=== PATIENT | male | born 1935 | race Caucasian/White ===

== ENCOUNTER 2018-06-24 15:27 | Inpatient (IN) ==
[2018-06-24 17:35] LABS: Baso # (Auto) 0.1 th/mm3 (0.0-0.2); Eos # (Auto) 0.2 th/mm3 (0.0-0.4); Eos % (Auto) 3.4 % (0.0-4.0); Hematocrit 25.7 % (39.0-51.0); Hemoglobin 8.5 gm/dL (13.0-17.0); Lymph # (Auto) 0.9 th/mm3 (1.0-4.8); Lymph % (Auto) 16.8 % (9.0-44.0); Mean Corpuscular HGB Conc 33.1 % (32.0-36.0); Mean Corpuscular Hemoglobin 28.3 pg (27.0-34.0); Mean Corpuscular Volume 85.6 fL (80.0-100.0); Mean Platelet Volume 8.2 fL (7.0-11.0); Mono # (Auto) 0.8 th/mm3 (0.0-0.9); Neut # (Auto) 3.4 th/mm3 (1.8-7.7); Neut % (Auto) 63.8 % (16.0-70.0); Platelet Count 162 th/mm3 (150-450); Red Cell Distribution Width 15.7 % (11.6-17.2); White Blood Count 5.3 th/mm3 (4.0-11.0)
[2018-06-24] MEDS ORDERED: Pantoprazole Inj 80 MG in Sodium Chlor 0.9% Inj 35 ML IV.SIG ONE (17:41)
[2018-06-24 17:42] LABS: Activated Partial Thrombo Time 33.2 sec (24.3-30.1); INR 1.2 Ratio; Prothrombin Time 12.2 sec (9.8-11.6)
[2018-06-24 17:50] LABS: Albumin 3.3 g/dL (3.4-5.0); Anion Gap 9 meq/L (5-15); Aspartate Aminotransferase 19 U/L (15-37); Blood Urea Nitrogen 10 mg/dL (7-18); Calcium 8.2 mg/dL (8.5-10.1); Carbon Dioxide 25.9 meq/L (21.0-32.0); Chloride 102 meq/L (98-107); Glomerular Filtration Rate Greater Than 89 mL/min (>89); Glucose,Random 98 mg/dL (74-106); Potassium 3.6 meq/L (3.5-5.1); Sodium 137 meq/L (136-145)
[2018-06-24 17:54] LABS: Alanine Aminotransferase 18 U/L (12-78); Alkaline Phosphatase 99 U/L (45-117); Total Protein 6.8 g/dL (6.4-8.2)
[2018-06-24] MEDS ORDERED: Pantoprazole Inj 80 MG in Sodium Chlor 0.9% Inj 100 ML IV.CONT SCH (18:00)
--- NOTE | 2018-06-24 18:42 | ED ---
HPI General Chief complaint: GI Bleed Stated complaint: Phy Sent Time Seen by Provider: 06/24/18 16:20 Source: patient and family Mode of arrival: ambulatory Limitations: no limitations History of Present Illness HPI narrative: Patient is an 82-year-old male who comes in. He is on Eliquis for atrial fibrillation and says that he has had nosebleeds, which he believes has caused his hemoglobin to drop. He says he required a blood transfusion about 2 months ago. He went to the resident clinic today to try to establish care. He had a blood gas done that showed a hemoglobin of 6.9, so he was sent to the emergency department. He says he feels very tired. He has no other complaints. He denies any chest pain or shortness of breath. He denies any abdominal pain. He does say that he has had some black stools. Related Data Home Medications Medication Instructions Recorded Confirmed apixaban [Eliquis] 5 mg PO BID 06/03/18 06/03/18 carvedilol [Coreg] 3.125 mg PO BID 06/03/18 06/03/18 donepezil 10 mg PO DAILY 06/03/18 06/03/18 fenofibrate 06/03/18 furosemide [Lasix] 10 mg PO Q3D 06/03/18 06/03/18 iron aspgl,ps complex-vit C-sa 1 cap PO Q24H 06/03/18 06/03/18 [Ferrex 150 Plus] lisinopril 2.5 mg PO DAILY 06/03/18 06/03/18 magnesium 200 mg PO DAILY 06/03/18 06/03/18 metformin 500 mg PO TID 06/03/18 06/03/18 paroxetine HCl 40 mg PO DAILY 06/03/18 06/03/18 simvastatin 20 mg PO QPM 06/03/18 06/03/18 sitagliptin [Januvia] 100 mg PO DAILY 06/03/18 06/03/18 tamsulosin [Flomax] 0.4 mg PO DAILY 06/03/18 06/03/18 Allergies Allergy/AdvReac Type Severity Reaction Status Date / Time Iodinated Contrast- Oral and Allergy Altered Verified 06/03/18 06:51 IV Dye Sense of [Contrast] Taste Review of Systems ROS: all other systems reviewed are negative Constitutional Denies chills and Denies fever(s) ENT Denies dizziness Cardiovascular Denies chest pain Respiratory Denies dyspnea and Denies dyspnea on exertion Gastrointestinal Denies abdominal pain, Denies nausea and Denies vomiting Musculoskeletal Denies myalgias and Denies arthralgias Integumentary/Breasts Denies lesions and Denies rash Neurologic Denies focal weakness and Denies numbness [facility] Medical History Medical History History of CHF (congestive heart failure) (Acute) History of atrial fibrillation (Acute) History of chronic obstructive pulmonary disease (Acute) History of diabetes mellitus (Acute) Surgical History Surgical History History of heart bypass surgery (Acute) Social History Social History Substance History: No History of Abuse Second Hand Smoke Exposure: No Smoking Status: Former smoker How Often Do You Have a Drink Containing Alcohol: Monthly or less Immunization History Tetanus Immunization: Unsure Hx Influenza Vaccine This Season: Yes Exam Narrative Exam Narrative: GENERAL: Awake and alert, no acute distress. SKIN: Focused skin assessment warm/dry. No wounds or signs of infection. HEAD: Atraumatic. Normocephalic. EYES: Pupils equal and round. No scleral icterus. Pale conjunctiva. ENT: Mucous membranes pink and moist. NECK: Trachea midline. No JVD. CARDIOVASCULAR: Regular rate and rhythm. No murmur appreciated. RESPIRATORY: No accessory muscle use. Clear to auscultation. Breath sounds equal bilaterally. GASTROINTESTINAL: Abdomen soft, non-tender, nondistended. RECTAL: Exam performed in the presence of a nurse. Black stool, positive for occult blood. MUSCULOSKELETAL: No obvious deformities. No clubbing. No cyanosis. No edema. NEUROLOGICAL: Awake and alert. No obvious cranial nerve deficits. Motor grossly within normal limits. Normal speech. PSYCHIATRIC: Appropriate mood and affect; insight and judgment normal. Course Initial Documented Vital Signs Temperature 98.2 F 06/24/18 15:48 Pulse Rate 63 06/24/18 15:48 Respiratory Rate 14 06/24/18 15:48 Blood Pressure 122/58 L 06/24/18 15:48 Pulse Oximetry 97 06/24/18 15:48 Last Documented Vital Signs Temperature 98.7 F 06/24/18 16:17 Pulse Rate 67 06/24/18 16:17 Respiratory Rate 18 06/24/18 16:17 Blood Pressure 128/57 L 06/24/18 16:17 Pulse Oximetry 98 06/24/18 17:10 Medical Decision Making MDM Narrative Medical decision making narrative: Patient is an 82-year-old male who comes in due to low hemoglobin. He is found to have blood in his stool. IV sevens, labs sent. Labs show hemoglobin of 8.5. Patient given Protonix. He will be admitted for further management. Medical Screen Exam Complete: Yes Emergency Medical Condition: Yes Differential Diagnosis Differential Diagnosis: GI bleed versus anemia versus coagulopathy Lab Data Lab results reviewed: Yes I reviewed the patient's lab results. Result diagrams: 06/24/18 16:40 06/24/18 16:40 Lab Results 06/24/18 06/24/18 06/24/18 Range/Units 16:40 16:40 16:40 WBC 5.3 (4.0-11.0) th/mm3 RBC 3.00 L (4.50-5.90) mil/mm3 Hgb 8.5 L (13.0-17.0) gm/dL Hct 25.7 L (39.0-51.0) % MCV 85.6 (80.0-100.0) fL MCH 28.3 (27.0-34.0) pg MCHC 33.1 (32.0-36.0) % RDW 15.7 (11.6-17.2) % Plt Count 162 (150-450) th/mm3 MPV 8.2 (7.0-11.0) fL Neut % (Auto) 63.8 (16.0-70.0) % Lymph % (Auto) 16.8 (9.0-44.0) % [place] % (Auto) 15.0 H (0.0-8.0) % Eos % (Auto) 3.4 (0.0-4.0) % Baso % (Auto) 1.0 (0.0-2.0) % Neut # (Auto) 3.4 (1.8-7.7) th/mm3 Lymph # (Auto) 0.9 L (1.0-4.8) th/mm3 [place] # (Auto) 0.8 (0.0-0.9) th/mm3 Eos # (Auto) 0.2 (0.0-0.4) th/mm3 Baso # (Auto) 0.1 (0.0-0.2) th/mm3 WBC Differential . Differential Comment Auto diff final PT 12.2 H (9.8-11.6) sec INR 1.2 Ratio APTT 33.2 H (24.3-30.1) sec Sodium 137 (136-145) meq/L Potassium 3.6 (3.5-5.1) meq/L Chloride 102 (98-107) meq/L Carbon Dioxide 25.9 (21.0-32.0) meq/L Anion Gap 9 (5-15) meq/L BUN 10 (7-18) mg/dL Creatinine 0.82 (0.60-1.30) mg/dL Estimated GFR Greater than 89 (>89) mL/min Random Glucose 98 (74-106) mg/dL Calcium 8.2 L (8.5-10.1) mg/dL Total Bilirubin 0.4 (0.2-1.0) mg/dL AST 19 (15-37) U/L ALT 18 (12-78) U/L Alkaline Phosphatase 99 (45-117) U/L Total Protein 6.8 (6.4-8.2) g/dL Albumin 3.3 L (3.4-5.0) g/dL Blood Type Antibody Screen 06/24/18 Range/Units 16:40 WBC (4.0-11.0) th/mm3 RBC (4.50-5.90) mil/mm3 Hgb (13.0-17.0) gm/dL Hct (39.0-51.0) % MCV (80.0-100.0) fL MCH (27.0-34.0) pg MCHC (32.0-36.0) % RDW (11.6-17.2) % Plt Count (150-450) th/mm3 MPV (7.0-11.0) fL Neut % (Auto) (16.0-70.0) % Lymph % (Auto) (9.0-44.0) % [place] % (Auto) (0.0-8.0) % Eos % (Auto) (0.0-4.0) % Baso % (Auto) (0.0-2.0) % Neut # (Auto) (1.8-7.7) th/mm3 Lymph # (Auto) (1.0-4.8) th/mm3 [place] # (Auto) (0.0-0.9) th/mm3 Eos # (Auto) (0.0-0.4) th/mm3 Baso # (Auto) (0.0-0.2) th/mm3 WBC Differential Differential Comment PT (9.8-11.6) sec INR Ratio APTT (24.3-30.1) sec Sodium (136-145) meq/L Potassium (3.5-5.1) meq/L Chloride (98-107) meq/L Carbon Dioxide (21.0-32.0) meq/L Anion Gap (5-15) meq/L BUN (7-18) mg/dL Creatinine (0.60-1.30) mg/dL Estimated GFR (>89) mL/min Random Glucose (74-106) mg/dL Calcium (8.5-10.1) mg/dL Total Bilirubin (0.2-1.0) mg/dL AST (15-37) U/L ALT (12-78) U/L Alkaline Phosphatase (45-117) U/L Total Protein (6.4-8.2) g/dL Albumin (3.4-5.0) g/dL Blood Type A Positive Antibody Screen Negative Discharge Plan Physicians Team ED Provider: Anne Moulton Rxs /Orders / Referrals /Forms Prescriptions: No Action donepezil 10 mg Tablet 10 mg PO DAILY RF: 0 carvedilol [Coreg] 3.125 mg Tablet 3.125 mg PO BID RF: 0 tamsulosin [Flomax] 0.4 mg Capsule,Extended Release 24hr 0.4 mg PO DAILY RF: 0 simvastatin 20 mg Tablet 20 mg PO QPM RF: 0 furosemide [Lasix] 20 mg Tablet 10 mg PO Q3D RF: 0 paroxetine HCl 40 mg Tablet 40 mg PO DAILY RF: 0 metformin 500 mg Tablet Extended Release 24 Hr 500 mg PO TID RF: 0 lisinopril 2.5 mg Tablet 2.5 mg PO DAILY RF: 0 magnesium 200 mg Tablet 200 mg PO DAILY RF: 0 fenofibrate 160 mg Tablet RF: 0 iron aspgl,ps complex-vit C-sa [Ferrex 150 Plus] 150-50-50 mg Capsule 1 cap PO Q24H RF: 0 sitagliptin [Januvia] 100 mg Tablet 100 mg PO DAILY RF: 0 apixaban [Eliquis] 5 mg Tablet 5 mg PO BID RF: 0 Discharge Interventions Interventions: Vital Signs Last Done: 06/24/18 16:17 Status ED Status: In Room
--- NOTE | 2018-06-24 18:55 | P.HPFP ---
History of Present Illness History of Present Illness: 82-year-old male, history of recurrent episodes of epistaxis and black stools times 1 year, diabetes, coronary artery disease, hypertension, iron deficiency anemia, CHF, atrial fibrillation, GERD, presents with history of recent epistaxis, bloody stool, and anemia. The patient is present with his son and daughter who assist in his explanation of his medical history. The patient states that he has been on Eliquis for 3 years and has had issues with epistaxis over the last year. The episodes have been quite severe and he has had to have a transfusion, attempted cauterization in his nostril, balloon placement in his nostril, and multiple episodes of symptomatic anemia. Each time he has had a nasal bleed, he has also had black stool at the same time for 2-3 days. He is not sure if he has ever told her doctor this before. 1 or 2 times over the last year he has seen blood in his stool. In this last episode, he had a nasal bleed from Saturday to Saturday and he saw black and bloody stools from Saturday to Saturday. He, per family, has been more fatigued, had a decreased appetite, and has been laying in bed much more. Patient denies any shortness of breath or chest pain. He denies that he is got much more fatigued. He thinks that he feels relatively fine. - Diagnosis (1) GI bleed (2) Epistaxis (3) Diabetes (4) Coronary artery disease (5) Hypertension (6) Iron deficiency anemia (7) CHF (congestive heart failure) (8) Atrial fibrillation (9) GERD (gastroesophageal reflux disease) (10) Insomnia (11) Nutrition, metabolism, and development symptoms Inpatient Certification: I certify that the inpatient services were ordered in accordance with Medicare regulations governing the order. This includes certification that hospital inpatient services are reasonable and necessary and in the case of services not specified as inpatient-only under 42 CFR 419.22(n), that they are appropriately provided as inpatient services in accordance to with the 2-midnight benchmark under 43 CFR 412.3(e) Review of Systems Constitutional: Reports night sweats, Denies chills, Denies fever(s), Denies headache(s) Eyes: Denies blurry vision Cardiovascular: Denies chest pain, Denies chest pain at rest Respiratory: Reports cough, Denies change in phlegm color Gastrointestinal: Reports black, tarry stools, Denies abdominal pain, Denies vomiting, Denies vomiting blood Genitourinary: Denies painful urination Musculoskeletal: Denies body aches Neurologic: Denies abnormal movements Psychiatric: Denies anxiety Endocrine: Denies cold intolerance Hematologic/Lymphatic: Denies easy bruising PMFSH - History History Provided By: Patient, Family Member - Medical History Medical History: Medical History (Last Reviewed 06/24/18 @ 19:21 by Paige Ham MD, R2) Atrial flutter Benign familial tremor CAD (coronary artery disease) Dementia Diabetes type 2, controlled GERD (gastroesophageal reflux disease) HTN (hypertension) History of alcoholism Hyperlipidemia Insomnia History of CHF (congestive heart failure) History of atrial fibrillation History of chronic obstructive pulmonary disease History of diabetes mellitus - Surgical History Surgical History: Surgical History (Last Updated 06/24/18 @ 19:21 by Paige Ham MD, R2) History of implantable cardioverter-defibrillator (ICD) placement History of heart bypass surgery - Tobacco History Second Hand Smoke Exposure: No Tobacco Use In Past 30 Days: Yes (quit in 1990) Smoking Status: Former smoker Tobacco Type: Cigarettes Packs Per Day: 1.5 - Alcohol History How Often Do You Have a Drink Containing Alcohol: Monthly or less - Substance Use History Substance History: No History of Abuse - Immunization History Tetanus Immunization: Unsure Hx Influenza Vaccine This Season: Yes Medications and Allergies Active Medications: Active Medications Pantoprazole Sodium 80 mg/ (Sodium Chloride) 100 mls @ 10 mls/hr IV.CONT CONT ZACH Sodium Chloride (Ns Flush) 2 ml IV.FLUSH PRN PRN PRN Reason: FLUSH AFTER USING IV ACCESS Allergies Allergy/AdvReac Type Severity Reaction Status Date / Time Iodinated Contrast- Oral and Allergy Altered Verified 06/03/18 06:51 IV Dye Sense of [Contrast] Taste Home Medications Medication Instructions Recorded Confirmed Type apixaban [Eliquis] 5 mg PO BID 06/03/18 06/03/18 History carvedilol [Coreg] 3.125 mg PO BID 06/03/18 06/03/18 History donepezil 10 mg PO DAILY 06/03/18 06/03/18 History fenofibrate 06/03/18 History furosemide [Lasix] 10 mg PO Q3D 06/03/18 06/03/18 History iron aspgl,ps complex-vit C-sa 1 cap PO Q24H 06/03/18 06/03/18 History [Ferrex 150 Plus] lisinopril 2.5 mg PO DAILY 06/03/18 06/03/18 History magnesium 200 mg PO DAILY 06/03/18 06/03/18 History metformin 500 mg PO TID 06/03/18 06/03/18 History paroxetine HCl 40 mg PO DAILY 06/03/18 06/03/18 History simvastatin 20 mg PO QPM 06/03/18 06/03/18 History sitagliptin [Januvia] 100 mg PO DAILY 06/03/18 06/03/18 History tamsulosin [Flomax] 0.4 mg PO DAILY 06/03/18 06/03/18 History Exam Vital signs: Vital Signs 06/24/18 15:48 06/24/18 16:15 06/24/18 16:17 Temperature 98.2 F 98.7 F Pulse Rate 63 76 67 Respiratory Rate 14 20 18 Blood Pressure 122/58 L 128/57 L 128/57 L Pulse Oximetry 97 98 98 06/24/18 17:10 Temperature Pulse Rate Respiratory Rate Blood Pressure Pulse Oximetry 98 Intake & Output 06/23/18 06/24/18 06/24/18 18:59 06:59 18:59 Weight 78 kg - Constitutional no acute distress - Routine HEENT Exam Head: Present: normocephalic - Detailed ENT Exam Nasal/Nares: Bilateral normal inspection - Routine Respiratory Exam Present: CTA bilaterally. Absent: decreased breath sounds, respiratory distress , wheezes, crackles - Routine Cardiovascular Exam Present: RRR, S1, S2 - Routine Abdominal Exam Present: soft, normoactive bowel sounds. Absent: tenderness, distended - Routine Extremities Exam Absent: cyanosis, clubbing, edema - Routine Neurological Exam Present: alert, oriented X3 Results - Labs Result diagrams: 06/24/18 16:40 06/24/18 16:40 Abnormal lab results 06/24/18 06/24/18 06/24/18 Range/Units 16:40 16:40 16:40 RBC 3.00 L (4.50-5.90) mil/mm3 Hgb 8.5 L (13.0-17.0) gm/dL Hct 25.7 L (39.0-51.0) % [place] % (Auto) 15.0 H (0.0-8.0) % Lymph # (Auto) 0.9 L (1.0-4.8) th/mm3 PT 12.2 H (9.8-11.6) sec APTT 33.2 H (24.3-30.1) sec Calcium 8.2 L (8.5-10.1) mg/dL Albumin 3.3 L (3.4-5.0) g/dL Short CBC 06/24/18 Range/Units 16:40 WBC 5.3 (4.0-11.0) th/mm3 Hgb 8.5 L (13.0-17.0) gm/dL Hct 25.7 L (39.0-51.0) % Plt Count 162 (150-450) th/mm3 BMP 06/24/18 16:40 Sodium 137 Potassium 3.6 Chloride 102 Carbon Dioxide 25.9 BUN 10 Creatinine 0.82 Calcium 8.2 L Liver Function 06/24/18 Range/Units 16:40 Total Bilirubin 0.4 (0.2-1.0) mg/dL AST 19 (15-37) U/L ALT 18 (12-78) U/L Alkaline Phosphatase 99 (45-117) U/L Albumin 3.3 L (3.4-5.0) g/dL Caprini VTE Risk Assessment Caprini VTE Risk Assessment: No/Low Risk (score <= 1) Caprini Risk Assessment Model: Point Value = 1 Point Value = 2 Point Value = 3 Point Value = 5 Age 41-60 Minor surgery BMI > 25 kg/m2 Swollen legs Varicose veins or History of unexplained or recurrent spontaneous Oral contraceptives or hormone replacement Sepsis (< 1 month) Serious lung disease, including pneumonia (< 1 month) Abnormal pulmonary function Acute myocardial infarction Congestive heart failure (< 1 month) History of inflammatory bowel disease Medical patient at bed rest Age 61-74 Arthroscopic surgery Major open surgery (> 45 min) Laparoscopic surgery (> 45 min) Malignancy Confined to bed (> 72 hours) Immobilizing plaster cast Central venous access Age >= 75 History of VTE Family history of VTE Factor V Leiden Prothrombin [id number] Lupus anticoagulant Anticardiolipin antibodies Elevated serum homocysteine Heparin-induced thrombocytopenia Other congenital or acquired thrombophilia Stroke (< 1 month) Elective arthroplasty Hip, pelvis, or leg fracture Acute spinal cord injury (< 1 month) Prophylaxis Regimen: Total Risk Factor Score Risk Level Prophylaxis Regimen 0-1 Low Early ambulation 2 Moderate Order ONE of the following: *Sequential Compression Device (SCD) *Heparin 5000 units SQ BID 3-4 Higher Order ONE of the following medications: *Heparin 5000 units SQ TID *Enoxaparin/Lovenox 40 mg SQ daily (WT < 150 kg, CrCl > 30 mL/min) *Enoxaparin/Lovenox 30 mg SQ daily (WT < 150 kg, CrCl > 10-29 mL/min) *Enoxaparin/Lovenox 30 mg SQ BID (WT < 150 kg, CrCl > 30 mL/min) AND/OR *Sequential Compression Device (SCD) 5 or more Highest Order ONE of the following medications: *Heparin 5000 units SQ TID (Preferred with Epidurals) *Enoxaparin/Lovenox 40 mg SQ daily (WT < 150 kg, CrCl > 30 mL/min) *Enoxaparin/Lovenox 30 mg SQ daily (WT < 150 kg, CrCl > 10-29 mL/min) *Enoxaparin/Lovenox 30 mg SQ BID (WT < 150 kg, CrCl > 30 mL/min) AND *Sequential Compression Device (SCD) Assessment and Plan - Assessment (1) GI bleed Code(s): K92.2 - Gastrointestinal hemorrhage, unspecified Status: Acute Plan: Suspecting acute on chronic GI bleed Vital signs stable, hemoglobin stable at 8.5 -Baseline hemoglobin 10 Follow-up H&H every 6 hours Continue Protonix 40 mg IV BID Follow-up with GI consult and recommendations Follow-up vital signs every 4 hours (2) Epistaxis Code(s): R04.0 - Epistaxis Status: Acute Plan: episodes x 1 year, on Eliquis x 3 years, no nasal bleeding x 24 hours Currently stabilized History of embolization, history of balloon placement, history of transfusion BP stable, H&H stable We will transfuse for hemoglobin less than 8.0 PCP placed referral for ENT for further evaluation She has been advised by esthetician makeup artist that he may have to weigh risks and benefits of anticoagulant versus nasal bleeds (3) Diabetes Code(s): E11.9 - Type 2 diabetes mellitus without complications Status: Acute Plan: History of type II DM, no complications Hold metformin twice daily Continue Januvia Follow-up CMP, A1c, UA (4) Coronary artery disease Code(s): I25.10 - Atherosclerotic heart disease of [place] coronary artery without angina pectoris Status: Acute (5) Hypertension Code(s): I10 - Essential (primary) hypertension Status: Acute Plan: BP 128/57 on admission -Baseline 165/70 per patient Hold home BP medications as are listed on med rec (list brought from daughter) (6) Iron deficiency anemia Code(s): D50.9 - Iron deficiency anemia, unspecified Status: Acute Plan: Diagnosis per records Hold Ferrex 150+ daily This medication may cause false positive Hemoccult (7) CHF (congestive heart failure) Code(s): I50.9 - Heart failure, unspecified Status: Acute Plan: CHF with defibrillator placement -Recent interrogation by esthetician makeup artist in [place] normal in March Hold home furosemide 10 mg every 3 days (8) Atrial fibrillation Code(s): I48.91 - Unspecified atrial fibrillation Status: Acute Plan: Patient has been on Eliquis x 3 years -He has been titrating down Eliquis on his own due to the recent nosebleed over the last year -No Eliquis for last 3 days Hold home Eliquis twice daily (9) GERD (gastroesophageal reflux disease) Code(s): K21.9 - Gastro-esophageal reflux disease without esophagitis Status: Acute Plan: Continue pantoprazole 40 mg bid (10) Insomnia Code(s): G47.00 - Insomnia, unspecified Status: Acute Plan: Continue home Xanax 0.25 mg as needed insomnia (11) Nutrition, metabolism, and development symptoms Code(s): R63.8 - Other symptoms and signs concerning food and fluid intake Status: Acute Plan: Fluids: P.o. fluids until midnight, caution with IV fluids due to CHF and COPD Electrolytes: Within normal limits, follow-up repeat BMP and replete as needed Nutrition: Regular p.o. until midnight, then n.p.o. DVT prophylaxis: SCDs only - Assessment and Plan 82-year-old male, history of recurrent episodes of epistaxis and black stools times 1 year, diabetes, coronary artery disease, hypertension, iron deficiency anemia, CHF, atrial fibrillation, GERD, presents with history of recent epistaxis, bloody stool, and anemia. Discharge Planning: Discharge pending GI evaluation and clearance (3) Diabetes Qualifiers: Diabetes mellitus type: type 2
[2018-06-24] MEDS ORDERED: Bisacodyl 10 MG Supp RECTAL PRN (19:40)
[2018-06-24] MEDS ORDERED: Acetaminophen 325 MG Tablet PO PRN (19:40)
--- NOTE | 2018-06-24 20:14 | XR ---
EXAM DATE: 06/24/2018 8:10 PM EDT AGE/SEX: 82 years / Male INDICATIONS: . Short of breath. CLINICAL DATA: This is the patient's initial encounter. Patient reports that signs and symptoms have been present for 1 day and indicates a pain score of 0/10. MEDICAL/SURGICAL HISTORY: Congestive heart failure. None. COMPARISON: . FINDINGS: Median sternotomy wires are noted status post cardiac surgery. Left subclavian dual lead pacemaker robles s its tips in the right heart. The pulmonary vascular pattern is normal. The lungs are clear. The hea rt is normal. CONCLUSION: No acute cardiopulmonary disease. Electronically signed by: Jayden Aleman MD 06/24/2018 8:13 PM EDT
[2018-06-24] MEDS ORDERED: ALPRAZolam 0.25 MG Tablet PO PRN (21:00)
[2018-06-24 22:58] LABS: Hematocrit 23.9 % (39.0-51.0); Hemoglobin 7.8 gm/dL (13.0-17.0)
[2018-06-24 23:06] LABS: Bilirubin,Urine Negative (Negative); Clarity,Urine Hazy (Clear); Color,Urine Yellow (Yellw/Straw); Glucose,Urine (UA) Negative (Negative); Leukocyte Esterase,Urine Trace (Negative); Mucus,Urine Few /lpf (Occasional); Nitrite,Urine Negative (Negative); Specific Gravity,Urine 1.012 (1.002-1.035); Squamous Epithelial Cell,Urine <1 /hpf (0-5)
[2018-06-25 03:21] LABS: Baso % (Auto) 0.7 % (0.0-2.0); Eos # (Auto) 0.2 th/mm3 (0.0-0.4); Eos % (Auto) 3.4 % (0.0-4.0); Hematocrit 24.4 % (39.0-51.0); Hemoglobin 7.9 gm/dL (13.0-17.0); Lymph # (Auto) 0.9 th/mm3 (1.0-4.8); Lymph % (Auto) 21.2 % (9.0-44.0); Mean Corpuscular HGB Conc 32.6 % (32.0-36.0); Mean Corpuscular Hemoglobin 27.8 pg (27.0-34.0); Mean Corpuscular Volume 85.5 fL (80.0-100.0); Mean Platelet Volume 7.8 fL (7.0-11.0); Mono # (Auto) 0.6 th/mm3 (0.0-0.9); Mono % (Auto) 14.3 % (0.0-8.0); Neut # (Auto) 2.7 th/mm3 (1.8-7.7); Neut % (Auto) 60.4 % (16.0-70.0); Platelet Count 144 th/mm3 (150-450); Red Blood Count 2.86 mil/mm3 (4.50-5.90); Red Cell Distribution Width 15.8 % (11.6-17.2); White Blood Count 4.5 th/mm3 (4.0-11.0)
[2018-06-25 03:27] LABS: INR 1.3 Ratio; Prothrombin Time 12.7 sec (9.8-11.6)
[2018-06-25 03:47] LABS: Albumin 3.1 g/dL (3.4-5.0); Anion Gap 9 meq/L (5-15); Aspartate Aminotransferase 17 U/L (15-37); Blood Urea Nitrogen 10 mg/dL (7-18); Carbon Dioxide 26.5 meq/L (21.0-32.0); Chloride 106 meq/L (98-107); Glomerular Filtration Rate Greater Than 89 mL/min (>89); Potassium 3.4 meq/L (3.5-5.1); Sodium 141 meq/L (136-145)
[2018-06-25 03:50] LABS: Alanine Aminotransferase 19 U/L (12-78); Alkaline Phosphatase 87 U/L (45-117); Glucose,Random 99 mg/dL (74-106); Total Protein 6.2 g/dL (6.4-8.2)
[2018-06-25] MEDS ORDERED: Sodium Chlor 0.9% Inj 250 ML IV.SIG SCH (08:00)
[2018-06-25] MEDS ORDERED: Dextrose 50% in Water 50 ML Vial IV.PUSH PRN (08:18)
[2018-06-25] MEDS: Pantoprazole Inj 40 MG Vial IV.PUSH SCH ×2 (08:19→20:10)
--- NOTE | 2018-06-25 08:24 | P.PNFP ---
Subjective Interval history: Patient seen and examined this morning. No acute events overnight per nursing staff. Patient states that he had no new episodes of bloody/black movements overnight, nosebleeds, or bloody emesis. Yesterday in my clinic, patient states that he did not endorse black/bloody bowel movements as he did not remember and did not think it was of significance despite being asked. We discussed due to his heart disease that his hemoglobin should be at a higher level than the average population. He is agreeable to blood transfusion at this time. We also discussed his gastroenterology referral and likely need for endoscopy. Patient does have a history of dementia, and consents will likely need to be obtained from his family. Otherwise he has no acute complaints and denies a complete review of systems including but not limited to any fevers, chills, shortness of breath, chest pain, NVD, abdominal pain, or calf tenderness at this time. <Donny Mckeon H - 06/25/18 08:24> Results - Labs Result diagrams: 06/25/18 02:53 06/25/18 02:53 <Lary Metzger - 06/25/18 17:25> Abnormal lab results 06/24/18 06/24/18 06/24/18 Range/Units 16:40 16:40 16:40 RBC 3.00 L (4.50-5.90) mil/mm3 Hgb 8.5 L (13.0-17.0) gm/dL Hct 25.7 L (39.0-51.0) % Plt Count (150-450) th/mm3 [place] % (Auto) 15.0 H (0.0-8.0) % Lymph # (Auto) 0.9 L (1.0-4.8) th/mm3 PT 12.2 H (9.8-11.6) sec APTT 33.2 H (24.3-30.1) sec Potassium (3.5-5.1) meq/L POC Glucose (68-110) mg/dl Calcium 8.2 L (8.5-10.1) mg/dL Total Protein (6.4-8.2) g/dL Albumin 3.3 L (3.4-5.0) g/dL Urine Clarity (Clear) Urine Ketones (Negative) mg/dL Ur Leukocyte Esterase (Negative) Urine Mucus (Occasional) /lpf MTS Gel Crossmatch 06/24/18 06/24/18 06/25/18 Range/Units 22:18 22:45 02:53 RBC 2.86 L (4.50-5.90) mil/mm3 Hgb 7.8 L 7.9 L (13.0-17.0) gm/dL Hct 23.9 L 24.4 L (39.0-51.0) % Plt Count 144 L (150-450) th/mm3 [place] % (Auto) 14.3 H (0.0-8.0) % Lymph # (Auto) 0.9 L (1.0-4.8) th/mm3 PT (9.8-11.6) sec APTT (24.3-30.1) sec Potassium (3.5-5.1) meq/L POC Glucose (68-110) mg/dl Calcium (8.5-10.1) mg/dL Total Protein (6.4-8.2) g/dL Albumin (3.4-5.0) g/dL Urine Clarity Hazy H (Clear) Urine Ketones Trace H (Negative) mg/dL Ur Leukocyte Esterase Trace H (Negative) Urine Mucus Few H (Occasional) /lpf MTS Gel Crossmatch 06/25/18 06/25/18 06/25/18 Range/Units 02:53 02:53 07:47 RBC (4.50-5.90) mil/mm3 Hgb (13.0-17.0) gm/dL Hct (39.0-51.0) % Plt Count (150-450) th/mm3 [place] % (Auto) (0.0-8.0) % Lymph # (Auto) (1.0-4.8) th/mm3 PT 12.7 H (9.8-11.6) sec APTT (24.3-30.1) sec Potassium 3.4 L (3.5-5.1) meq/L POC Glucose (68-110) mg/dl Calcium 8.0 L (8.5-10.1) mg/dL Total Protein 6.2 L D (6.4-8.2) g/dL Albumin 3.1 L (3.4-5.0) g/dL Urine Clarity (Clear) Urine Ketones (Negative) mg/dL Ur Leukocyte Esterase (Negative) Urine Mucus (Occasional) /lpf MTS Gel Crossmatch See Detail 06/25/18 06/25/18 Range/Units 11:14 16:19 RBC (4.50-5.90) mil/mm3 Hgb (13.0-17.0) gm/dL Hct (39.0-51.0) % Plt Count (150-450) th/mm3 [place] % (Auto) (0.0-8.0) % Lymph # (Auto) (1.0-4.8) th/mm3 PT (9.8-11.6) sec APTT (24.3-30.1) sec Potassium (3.5-5.1) meq/L POC Glucose 119 H 132 H (68-110) mg/dl Calcium (8.5-10.1) mg/dL Total Protein (6.4-8.2) g/dL Albumin (3.4-5.0) g/dL Urine Clarity (Clear) Urine Ketones (Negative) mg/dL Ur Leukocyte Esterase (Negative) Urine Mucus (Occasional) /lpf MTS Gel Crossmatch Short CBC 06/24/18 06/24/18 06/25/18 Range/Units 16:40 22:18 02:53 WBC 5.3 4.5 (4.0-11.0) th/mm3 Hgb 8.5 L 7.8 L 7.9 L (13.0-17.0) gm/dL Hct 25.7 L 23.9 L 24.4 L (39.0-51.0) % Plt Count 162 144 L (150-450) th/mm3 BMP 06/24/18 06/25/18 16:40 02:53 Sodium 137 141 Potassium 3.6 3.4 L Chloride 102 106 Carbon Dioxide 25.9 26.5 BUN 10 10 Creatinine 0.82 0.82 Calcium 8.2 L 8.0 L Liver Function 06/24/18 06/25/18 Range/Units 16:40 02:53 Total Bilirubin 0.4 0.5 (0.2-1.0) mg/dL AST 19 17 (15-37) U/L ALT 18 19 (12-78) U/L Alkaline Phosphatase 99 87 (45-117) U/L Albumin 3.3 L 3.1 L (3.4-5.0) g/dL Urine 06/24/18 Range/Units 22:45 Urine Color Yellow (Yellw/Straw) Urine Clarity Hazy H (Clear) Urine pH 6.0 (5.0-8.5) Ur Specific [place] 1.012 (1.002-1.035) Urine Protein Negative (Neg-Trace) mg/dL Urine Glucose (UA) Negative (Negative) mg/dL <Lary Metzger M - 06/25/18 17:25> Abnormal lab results 06/24/18 06/24/18 06/24/18 Range/Units 16:40 16:40 16:40 RBC 3.00 L (4.50-5.90) mil/mm3 Hgb 8.5 L (13.0-17.0) gm/dL Hct 25.7 L (39.0-51.0) % Plt Count (150-450) th/mm3 [place] % (Auto) 15.0 H (0.0-8.0) % Lymph # (Auto) 0.9 L (1.0-4.8) th/mm3 PT 12.2 H (9.8-11.6) sec APTT 33.2 H (24.3-30.1) sec Potassium (3.5-5.1) meq/L Calcium 8.2 L (8.5-10.1) mg/dL Total Protein (6.4-8.2) g/dL Albumin 3.3 L (3.4-5.0) g/dL Urine Clarity (Clear) Urine Ketones (Negative) mg/dL Ur Leukocyte Esterase (Negative) Urine Mucus (Occasional) /lpf MTS Gel Crossmatch 06/24/18 06/24/18 06/25/18 Range/Units :18 22:45 02:53 RBC 2.86 L (4.50-5.90) mil/mm3 Hgb 7.8 L 7.9 L (13.0-17.0) gm/dL Hct 23.9 L 24.4 L (39.0-51.0) % Plt Count 144 L (150-450) th/mm3 [place] % (Auto) 14.3 H (0.0-8.0) % Lymph # (Auto) 0.9 L (1.0-4.8) th/mm3 PT (9.8-11.6) sec APTT (24.3-30.1) sec Potassium (3.5-5.1) meq/L Calcium (8.5-10.1) mg/dL Total Protein (6.4-8.2) g/dL Albumin (3.4-5.0) g/dL Urine Clarity Hazy H (Clear) Urine Ketones Trace H (Negative) mg/dL Ur Leukocyte Esterase Trace H (Negative) Urine Mucus Few H (Occasional) /lpf MTS Gel Crossmatch 06/25/18 06/25/18 06/25/18 Range/Units 02:53 02:53 07:47 RBC (4.50-5.90) mil/mm3 Hgb (13.0-17.0) gm/dL Hct (39.0-51.0) % Plt Count (150-450) th/mm3 [place] % (Auto) (0.0-8.0) % Lymph # (Auto) (1.0-4.8) th/mm3 PT 12.7 H (9.8-11.6) sec APTT (24.3-30.1) sec Potassium 3.4 L (3.5-5.1) meq/L Calcium 8.0 L (8.5-10.1) mg/dL Total Protein 6.2 L D (6.4-8.2) g/dL Albumin 3.1 L (3.4-5.0) g/dL Urine Clarity (Clear) Urine Ketones (Negative) mg/dL Ur Leukocyte Esterase (Negative) Urine Mucus (Occasional) /lpf MTS Gel Crossmatch See Detail Short CBC 06/24/18 06/24/18 06/25/18 Range/Units 16:40 22:18 02:53 WBC 5.3 4.5 (4.0-11.0) th/mm3 Hgb 8.5 L 7.8 L 7.9 L (13.0-17.0) gm/dL Hct 25.7 L 23.9 L 24.4 L (39.0-51.0) % Plt Count 162 144 L (150-450) th/mm3 BMP 06/24/18 06/25/18 16:40 02:53 Sodium 137 141 Potassium 3.6 3.4 L Chloride 102 106 Carbon Dioxide 25.9 26.5 BUN 10 10 Creatinine 0.82 0.82 Calcium 8.2 L 8.0 L Liver Function 06/24/18 06/25/18 Range/Units 16:40 02:53 Total Bilirubin 0.4 0.5 (0.2-1.0) mg/dL AST 19 17 (15-37) U/L ALT 18 19 (12-78) U/L Alkaline Phosphatase 99 87 (45-117) U/L Albumin 3.3 L 3.1 L (3.4-5.0) g/dL Urine 06/24/18 Range/Units 22:45 Urine Color Yellow (Yellw/Straw) Urine Clarity Hazy H (Clear) Urine pH 6.0 (5.0-8.5) Ur Specific [place] 1.012 (1.002-1.035) Urine Protein Negative (Neg-Trace) mg/dL Urine Glucose (UA) Negative (Negative) mg/dL <Donny Mckeon - 06/25/18 08:24> - Imaging Impressions Chest X-Ray 06/24/18 00:00 CONCLUSION: No acute cardiopulmonary disease. <Lary Metzger - 06/25/18 17:25> Impressions Chest X-Ray 06/24/18 00:00 CONCLUSION: No acute cardiopulmonary disease. <Donny Mckeon - 06/25/18 08:24> Physical Exam Vital signs: Vital Signs 06/24/18 20:12 06/24/18 21:08 06/24/18 21:10 Temperature 98.4 F Pulse Rate 64 Respiratory Rate 19 Blood Pressure 165/73 H Pulse Oximetry 94 L 98 98 06/24/18 21:20 06/25/18 00:34 06/25/18 03:55 Temperature 98.6 F 98.6 F 98.3 F Pulse Rate 64 68 79 Respiratory Rate 18 18 18 Blood Pressure 140/64 148/65 H 142/67 H Pulse Oximetry 96 97 96 06/25/18 08:00 06/25/18 09:51 06/25/18 09:52 Temperature 97.9 F 98.3 F Pulse Rate 62 79 Respiratory Rate 16 18 Blood Pressure 138/62 142/67 H Pulse Oximetry 97 97 97 06/25/18 10:09 06/25/18 12:00 06/25/18 13:26 Temperature 98.5 F 98.2 F 98.2 F Pulse Rate 62 65 65 Respiratory Rate 18 16 16 Blood Pressure 169/67 H 133/63 133/63 Pulse Oximetry 96 95 95 06/25/18 14:19 06/25/18 14:38 Temperature 98.2 F 98.4 F Pulse Rate 65 77 Respiratory Rate 18 16 Blood Pressure 133/63 147/68 H Pulse Oximetry 95 97 Intake & Output 06/24/18 06/25/18 06/25/18 18:59 06:59 18:59 Intake Total 495 / 495 200 / 200 Output Total 1050 / 1050 Balance 495 / 495 -850 / -850 Weight 78 kg 71.5 kg Intake: IV 135 / 135 200 / 200 D5W/1/2 NS Inj 1,000 ML @ 50 200 / 200 mls/hr IV.CONT .Q20H ZACH Rx#: [id number] Protonix Inj 80 MG In NS Inj 100 / 100 100 ML @ 10 mls/hr IV.CONT CONT ZACH Rx#:[id number] Protonix Inj 80 MG In NS Inj 35 35 / 35 ML @ 420 mls/hr IV.SIG BOLUS ONE Rx#:[id number] Oral 360 / 360 Intake (Blood Product) Amt 0 / 0 Rbc As-3 Leukoreduced Unit 0 / 0 [id number] Rbc As-3 Leukoreduced Unit 0 / 0 [id number] Output: Urine 1050 / 1050 Other: # Voids 600 # Bowel Movements 0 Weight On Admission 78 kg <DomenicaLary M - 06/25/18 17:25> Vital Signs 06/24/18 15:48 06/24/18 16:15 06/24/18 16:17 Temperature 98.2 F 98.7 F Pulse Rate 63 76 67 Respiratory Rate 14 20 18 Blood Pressure 122/58 L 128/57 L 128/57 L Pulse Oximetry 97 98 98 06/24/18 17:10 06/24/18 20:12 06/24/18 21:08 Temperature 98.4 F Pulse Rate 64 Respiratory Rate 19 Blood Pressure 165/73 H Pulse Oximetry 98 94 L 98 06/24/18 21:10 06/24/18 21:20 06/25/18 00:34 Temperature 98.6 F 98.6 F Pulse Rate 64 68 Respiratory Rate 18 18 Blood Pressure 140/64 148/65 H Pulse Oximetry 98 96 97 06/25/18 03:55 Temperature 98.3 F Pulse Rate 79 Respiratory Rate 18 Blood Pressure 142/67 H Pulse Oximetry 96 Intake & Output 06/24/18 06/25/18 06/25/18 18:59 06:59 18:59 Intake Total 495 / 495 Balance 495 / 495 Weight 78 kg 71.5 kg Intake: IV 135 / 135 Protonix Inj 80 MG In NS Inj 100 / 100 100 ML @ 10 mls/hr IV.CONT CONT ZACH Rx#:[id number] Protonix Inj 80 MG In NS Inj 35 35 / 35 ML @ 420 mls/hr IV.SIG BOLUS ONE Rx#:[id number] Oral 360 / 360 Other: # Voids 600 # Bowel Movements 0 Weight On Admission 78 kg <Donny Mckeon - 06/25/18 08:24> Narrative: GENERAL: Elderly male lying in bed watching television in no acute distress. SKIN: Warm and dry. Pale appearing. No rash. Mildly delayed capillary refill approximately 4 seconds. HEENT: Atraumatic, normocephalic with extraocular motions intact. Oropharynx clear without erythema or exudate. Bilateral nasal turbinates without signs of bleeding. No rhinorrhea. No palpable LAD, JVD, or thyroid abnormality. CARDIOVASCULAR: Regular rate and rhythm without obvious murmurs, gallops, or rubs. 2+ pulses in all four extremities. RESPIRATORY: Clear to auscultation bilaterally with no crackles, wheezes, or rhonchi. No increased work of breathing. GASTROINTESTINAL: Abdomen soft, non-tender, nondistended with positive bowel sounds. No masses appreciated. MUSCULOSKELETAL: No cyanosis or edema. No calf tenderness. Ambulating well without assistance. NEURO/PSYCH: Afocal. Awake, alert, and oriented x3. Oriented PPT 3. Normal speech and judgement. Patient is not able to recall complete medical history and medications likely secondary to dementia. <Donny Mckeon - 06/25/18 09:05> Assessment and Plan - Assessment (1) GI bleed Code(s): K92.2 - Gastrointestinal hemorrhage, unspecified Status: Acute (2) Epistaxis Code(s): R04.0 - Epistaxis Status: Acute (3) Dementia Code(s): F03.90 - Unspecified dementia without behavioral disturbance Status: Chronic (4) Diabetes Code(s): E11.9 - Type 2 diabetes mellitus without complications Status: Chronic (5) Coronary artery disease Code(s): I25.10 - Atherosclerotic heart disease of [place] coronary artery without angina pectoris Status: Chronic (6) Hypertension Code(s): I10 - Essential (primary) hypertension Status: Chronic (7) Iron deficiency anemia Code(s): D50.9 - Iron deficiency anemia, unspecified Status: Chronic (8) CHF (congestive heart failure) Code(s): I50.9 - Heart failure, unspecified Status: Chronic (9) Atrial fibrillation Code(s): I48.91 - Unspecified atrial fibrillation Status: Chronic (10) GERD (gastroesophageal reflux disease) Code(s): K21.9 - Gastro-esophageal reflux disease without esophagitis Status: Chronic (11) Insomnia Code(s): G47.00 - Insomnia, unspecified Status: Chronic (12) BPH (benign prostatic hyperplasia) Code(s): N40.0 - Benign prostatic hyperplasia without lower urinary tract symptoms Status: Chronic (13) Nutrition, metabolism, and development symptoms Code(s): R63.8 - Other symptoms and signs concerning food and fluid intake Status: Acute (14) DVT prophylaxis Status: Acute <Lary Metzger - 06/25/18 17:25> (1) GI bleed Code(s): K92.2 - Gastrointestinal hemorrhage, unspecified Status: Acute Plan: Patient presenting with symptomatic anemia with possibility of acute on chronic GI bleed. Hemoglobin in office 6.9. Patient chronically anticoagulated with Eliquis, patient has held medication for 3-4 days. -H/H: 8.5/25.7, 7.8/23.9, 7.9/24.4 -Hemoccult: Positive in ER per report (patient is on supplemental iron which can cause false positive) -Electrolytes: within normal limits -N.p.o. for possible endoscopy -Consult GI, appreciate recommendations -2 units PRBC ordered; goal to maintain hemoglobin above 8 due to coronary artery disease Medications: -Continue Protonix 40 mg IV BID -Zofran as needed for nausea/vomiting -D5 half-normal saline at 100 ml/hr as patient is NPO (2) Epistaxis Code(s): R04.0 - Epistaxis Status: Acute Plan: Patient with reported episodes of epistaxis while on Eliquis. Patient has history of embolization, balloon pressure, and transfusion secondary to his bleeding. Patient reports no acute bleeding over the last 24 hours. Patient reported he was advised by sample collector that he may need to weigh risks versus benefits of anticoagulation with his epistaxis. -Patient reports no bleeding over the last 24 hours -Continue to monitor vital signs and hemoglobin -Blood transfusion as above -Patient referred to ENT for further evaluation as an outpatient (3) Dementia Code(s): F03.90 - Unspecified dementia without behavioral disturbance Status: Chronic Plan: Patient with reported dementia, however is unable to report type -Patient currently AAO 3 and oriented PPT 3 -Reported POA per chart is patient's daughter, Shirley Tipton [phone], and son, Deni Whitfield [phone] -Patient currently living with son who assists him with daily activities Medications: -Continue daily donepezil (4) Diabetes Code(s): E11.9 - Type 2 diabetes mellitus without complications Status: Chronic Plan: Patient with history of type 2 diabetes mellitus, not requiring insulin. Patient reports stable blood glucose on metformin and Januvia. Patient unaware of baseline on glucose as he does not monitor his blood sugar. -CMP: Glucose 99 -UA: Hazy, mucus, trace ketones, negative glucose, trace leukocyte esterase; otherwise within normal limits -Hemoglobin A1c: Pending -Plan to advance diet to diabetic diet once n.p.o. order is lifted Medications: Hold home metformin and Januvia Low-dose sliding scale insulin per protocol D5 half-normal saline at 100 mL/h to maintain blood glucose while n.p.o. (5) Coronary artery disease Code(s): I25.10 - Atherosclerotic heart disease of [place] coronary artery without angina pectoris Status: Chronic Plan: Patient with history of coronary artery disease s/p CABG procedure. Patient also with CHF and defibrillator in place. Patient also anticoagulated on Eliquis, per patient has been held for 3-4 days. -Due to coronary artery disease, plan to maintain hemoglobin above 8 -Lasix to be ordered with blood transfusion if indicated -Telemetry Medications: -Continue home pravastatin -Hold Eliquis (6) Hypertension Code(s): I10 - Essential (primary) hypertension Status: Chronic Plan: Patient with history of essential hypertension. -Blood pressure 108/48 in office -Blood pressure 122/58-165/73 over the first 24 hours of hospitalization -Baseline 165/70 per patient Medications: -Continue home lisinopril 2.5 mg daily. -Continue Lasix 10 mg every 72 hours (7) Iron deficiency anemia Code(s): D50.9 - Iron deficiency anemia, unspecified Status: Chronic Plan: Patient with history of iron deficiency anemia per chart review -Patient currently on supplemental iron which can cause false positive Hemoccult -Blood transfusion as above Medications: Hold home iron (8) CHF (congestive heart failure) Code(s): I50.9 - Heart failure, unspecified Status: Chronic Plan: Patient with history of CHF and defibrillator placement. Currently managed by sample collector in [place], [place]. -Patient unsure of most recent ejection fraction or other echocardiogram information -Recent interrogation by sample collector in [place] normal in March Medications: -Continue home carvedilol 3.125 mg twice daily Continue home Lasix 10 mg every 72 hours (9) Atrial fibrillation Code(s): I48.91 - Unspecified atrial fibrillation Status: Chronic Plan: Patient with reported atrial fibrillation per chart review currently anticoagulated on Eliquis -Telemetry -Patient chronically anticoagulated with Eliquis, held per patient for the last 3-4 days Medications: -Hold home Eliquis -Continue carvedilol 3.125 mg twice daily (10) GERD (gastroesophageal reflux disease) Code(s): K21.9 - Gastro-esophageal reflux disease without esophagitis Status: Chronic Plan: Patient with history of GERD Medications: -Continue pantoprazole 40 mg bid (11) Insomnia Code(s): G47.00 - Insomnia, unspecified Status: Chronic Plan: Patient with history of insomnia Medications: Continue home Xanax 0.25 mg as needed insomnia (12) BPH (benign prostatic hyperplasia) Code(s): N40.0 - Benign prostatic hyperplasia without lower urinary tract symptoms Status: Chronic Plan: Patient with history of BPH Medications: Continue home tamsulosin (13) Nutrition, metabolism, and development symptoms Code(s): R63.8 - Other symptoms and signs concerning food and fluid intake Status: Acute Plan: Fluids: D5 half-normal saline at 50 mL/h as patient is n.p.o. Electrolytes: Hypokalemia repleted, continue to monitor Nutrition: N.p.o. for possible endoscopy Prophylaxis: Pantoprazole IV twice daily, albuterol as needed for shortness of breath/wheezing, clonidine as needed for blood pressure greater than 180/110, alprazolam 0.25 mg as needed for insomnia, constipation protocol in place, diphenhydramine as needed for itching, Tylenol as needed for fever/pain, incentive spirometry -PT ordered (14) DVT prophylaxis Status: Acute Plan: -SCDs only -Patient chronically anticoagulated with Eliquis, held due to possible GI bleed and anemia <Donny Mckeon H - 06/25/18 08:48> - Assessment and Plan 82-year-old male, history of recurrent episodes of epistaxis and black stools times 1 year, diabetes, coronary artery disease, hypertension, iron deficiency anemia, CHF, atrial fibrillation, GERD, presents with history of recent epistaxis, bloody stool, and anemia. <Donny Mckeon - 06/25/18 08:24> - Attending Attestation The exam, history, and the medical decision-making described in the above note were completed with the assistance of the resident physician. I reviewed and agree with the findings presented. I attest that I had a [id number] encounter with the patient on the same day, and personally performed and documented my assessment and findings in the medical record. Spoke to him today and he is very realistic about understanding the taking Eliquis leads to more bleeding. However he is making a decision and will go back on it once he sees ear nose and throat and has some remedy for his nasal bleeding. He did not ever have colonoscopy before so he will have that tomorrow as he does have per his report bright red blood per rectum <Lary Metzger M - 06/25/18 17:25> <Donny Mckeon - Last Filed: 06/25/18 08:48> (3) Dementia Qualifiers: Dementia type: unspecified type (4) Diabetes Qualifiers: Diabetes mellitus type: type 2 <Lary Metzger - Last Filed: 06/25/18 17:25> (3) Dementia Qualifiers: Dementia type: unspecified type (4) Diabetes Qualifiers: Diabetes mellitus type: type 2 <Donny Mckeon - Last Filed: 06/25/18 08:48> (3) Dementia Qualifiers: Dementia type: unspecified type (4) Diabetes Qualifiers: Diabetes mellitus type: type 2 <Lary Metzger - Last Filed: 06/25/18 17:25> (3) Dementia Qualifiers: Dementia type: unspecified type (4) Diabetes Qualifiers: Diabetes mellitus type: type 2
[2018-06-25] MEDS ORDERED: Potassium Chloride 10 MEQ ER Capsule PO ONE (08:30)
[2018-06-25] MEDS ORDERED: Pantoprazole Inj 40 MG Vial IV.PUSH SCH (09:00)
[2018-06-25] MEDS ORDERED: Dextrose 5%/NaCl 0.45% Inj 1,000 ML IV.CONT SCH (09:00)
--- NOTE | 2018-06-25 09:11 | P.CONGI ---
History of Present Illness Consult date: 06/25/18 Consult reason: GIB Chief complaint: GI Bleed History of Present Illness: This is a 82 yo M with PMH significant for DM, a-fib anticoagulated on Eliquis, CHF, CAD, HTN, SHANNON, GERD and recurrent episodes of epistaxis. Pt reports recurrent nose bleeds since being started on Eliquis, states has been so severe that he has had rhino rockets and cauterizations in the past by his ENT doctor in [place], most recently 2 months ago. Pt recently moved here from [place], he went to a clinic to establish care yesterday and had labs done which revealed a severely low blood count, he was referred to the hospital for admission. Pt does report black stools after his nose bleeds, lasts a few days, denies black stools outside of these episodes. Also reports some BRB in his stools that has been intermittent for the past year. Pt very vague about symptoms, according to record denied this to the attending this morning. Pt does have history of mild dementia, daughter at bedside participating in history , states that he has been noticing BRB occasionally in his stools. Denies constipation, diarrhea, abdominal pain, nausea, vomiting, heartburn, dysphagia. Pt does report about a nine pound weight loss over the past three weeks, has regained some of the weight but unsure if this is fluid retention secondary to his CHF. Denies previous EGD. Last colonoscopy over 10 years ago and he does not recall any abnormal findings. Denies family history of colon cancer. Denies ETOH and smoking. Of note, takes Excedrin every 2-3 weeks for migraines. Pts last dose of Eliquis was Saturday morning. <Char Gilmore - Last Filed: 06/25/18 08:57> Review of Systems Constitutional: Reports fatigue, Reports weight loss Cardiovascular: Denies chest pain Respiratory: Denies shortness of breath Gastrointestinal: Reports black, tarry stools, Reports bright, red blood in stools, Denies abdominal pain, Denies difficulty swallowing, Denies nausea, Denies vomiting <Char Gilmore - Last Filed: 06/25/18 08:57> PMFSH - History History Provided By: Patient - Medical History Medical History: Medical History (Last Reviewed 06/24/18 @ 19:21 by Paige Ham MD, R2) Atrial flutter Benign familial tremor CAD (coronary artery disease) Dementia Diabetes type 2, controlled GERD (gastroesophageal reflux disease) HTN (hypertension) History of alcoholism Hyperlipidemia Insomnia History of CHF (congestive heart failure) History of atrial fibrillation History of chronic obstructive pulmonary disease History of diabetes mellitus - Surgical History Surgical History: Surgical History (Last Updated 06/24/18 @ 19:21 by Paige Ham MD, R2) History of implantable cardioverter-defibrillator (ICD) placement History of heart bypass surgery - Tobacco History Second Hand Smoke Exposure: No Tobacco Use In Past 30 Days: No (quit in 1990) Smoking Status: Former smoker Tobacco Type: Cigarettes Packs Per Day: 1.5 - Alcohol History How Often Do You Have a Drink Containing Alcohol: Never - Substance Use History Substance History: No History of Abuse - Immunization History Tetanus Immunization: Unsure Hx Influenza Vaccine This Season: Yes <Char Gilmore - Last Filed: 06/25/18 08:57> - Medical History Medical History: Medical History (Last Reviewed 06/24/18 @ 19:21 by Paige Ham MD, R2) Atrial flutter Benign familial tremor CAD (coronary artery disease) Dementia Diabetes type 2, controlled GERD (gastroesophageal reflux disease) HTN (hypertension) History of alcoholism Hyperlipidemia Insomnia History of CHF (congestive heart failure) History of atrial fibrillation History of chronic obstructive pulmonary disease History of diabetes mellitus - Surgical History Surgical History: Surgical History (Last Updated 06/24/18 @ 19:21 by Paige Ham MD, R2) History of implantable cardioverter-defibrillator (ICD) placement History of heart bypass surgery <Chino Cool - Last Filed: 06/25/18 17:00> Medications and Allergies Active Medications: Active Medications Acetaminophen (Tylenol) 650 mg PO Q4H PRN PRN Reason: Temp > 100.4 Al Hydroxide/Mg Hydroxide (Milk Of Magnesia Liq) 30 ml PO Q12H PRN PRN Reason: Mild Constipation Alprazolam (Xanax) 0.25 mg PO DAILY PRN PRN Reason: INSOMNIA Bisacodyl (Dulcolax Supp) 10 mg RECTAL DAILY PRN PRN Reason: SEVERE CONSITIPATION Carvedilol (Coreg) 3.125 mg PO BID ZACH Dextrose (D50w Vial) 50 ml IV.PUSH UNSCH PRN PRN Reason: PER HYPOGLYCEMIA PROTOCOL Diphenhydramine HCl (Benadryl) 25 mg PO Q4H PRN PRN Reason: SEE LABEL COMMENTS Stop: 06/25/18 23:59 Donepezil HCl (Aricept) 10 mg PO DAILY [facility] Last Admin: 06/25/18 08:19 Dose: 10 mg Furosemide (Lasix) 10 mg PO Q3D ZACH Glucagon (Glucagon Inj) 1 mg OTHER UNSCH PRN PRN Reason: for Hypoglycemia Protocol Sodium Chloride (Ns Inj) 250 mls @ 15 mls/hr IV.SIG ONCE ZACH Stop: 06/26/18 00:39 Dextrose/Sodium Chloride (D5w/1/2 Ns Inj) 1,000 mls @ 50 mls/hr IV.CONT .Q20H [facility] Insulin Aspart (Novolog Insulin Correctional Sugar Inj) 0 unit SQ ACHS ZACH; Protocol Lactulose (Lactulose Liq) 30 ml PO DAILY PRN PRN Reason: SEVERE CONSITIPATION Non-Formulary Medication (Fenofibrate [Fenofibrate]) 160 mg PO DAILY [facility] Non-Formulary Medication (Lisinopril [Lisinopril]) 2.5 mg PO DAILY [facility] Ondansetron HCl (Zofran Inj) 4 mg IV.PUSH Q6H PRN PRN Reason: NAUSEA OR VOMITING Pantoprazole Sodium (Protonix Inj) 40 mg IV.PUSH Q12H [facility] Last Admin: 06/25/18 08:19 Dose: 40 mg Paroxetine HCl (Paxil) 40 mg PO DAILY [facility] Last Admin: 06/25/18 08:19 Dose: 40 mg Pravastatin Sodium (Pravachol) 40 mg PO QPM [facility] Sennosides (Senokot) 17.2 mg PO Q12H PRN PRN Reason: Moderate Constipation Sitagliptin Phosphate (Januvia) 100 mg PO DAILY [facility] Last Admin: 06/25/18 08:19 Dose: 100 mg Sodium Chloride (Ns Flush) 2 ml IV.FLUSH PRN PRN PRN Reason: FLUSH AFTER USING IV ACCESS Tamsulosin HCl (Flomax) 0.4 mg PO DAILY [facility] <Char Gilmore - Last Filed: 06/25/18 08:57> Active Medications: Active Medications Acetaminophen (Tylenol) 650 mg PO Q4H PRN PRN Reason: Temp > 100.4 Al Hydroxide/Mg Hydroxide (Milk Of Magnesia Liq) 30 ml PO Q12H PRN PRN Reason: Mild Constipation Albuterol (Albuterol Neb (Prn)) 2.5 mg NEB Q6HR NEB PRN PRN Reason: SOB/Wheezing Alprazolam (Xanax) 0.25 mg PO DAILY PRN PRN Reason: INSOMNIA Bisacodyl (Dulcolax Supp) 10 mg RECTAL DAILY PRN PRN Reason: SEVERE CONSITIPATION Carvedilol (Coreg) 3.125 mg PO BID [facility] Last Admin: 06/25/18 10:00 Dose: 3.125 mg Clonidine HCl (Catapres) 0.1 mg PO Q6H PRN PRN Reason: BP >180/110 Dextrose (D50w Vial) 50 ml IV.PUSH UNSCH PRN PRN Reason: PER HYPOGLYCEMIA PROTOCOL Diphenhydramine HCl (Benadryl) 25 mg PO Q4H PRN PRN Reason: SEE LABEL COMMENTS Stop: 06/25/18 23:59 Last Admin: 06/25/18 10:00 Dose: 25 mg Donepezil HCl (Aricept) 10 mg PO DAILY [facility] Last Admin: 06/25/18 08:19 Dose: 10 mg Fenofibrate (Tricor) 145 mg PO DAILY [facility] Last Admin: 06/25/18 10:02 Dose: 145 mg Furosemide (Lasix) 10 mg PO Q3D [facility] Glucagon (Glucagon Inj) 1 mg OTHER UNSCH PRN PRN Reason: for Hypoglycemia Protocol Sodium Chloride (Ns Inj) 250 mls @ 15 mls/hr IV.SIG ONCE [facility] Stop: 06/26/18 00:39 Last Admin: 06/25/18 10:01 Dose: 15 mls/hr Dextrose/Sodium Chloride (D5w/1/2 Ns Inj) 1,000 mls @ 75 mls/hr IV.CONT .[id number] [facility] Insulin Aspart (Novolog Insulin Correctional Sugar Inj) 0 unit SQ ACHS [facility]; Protocol Last Admin: 06/25/18 16:42 Dose: Not Given Lactulose (Lactulose Liq) 30 ml PO DAILY PRN PRN Reason: SEVERE CONSITIPATION Lisinopril (Prinivil) 2.5 mg PO DAILY [facility] Last Admin: 06/25/18 10:03 Dose: 2.5 mg Magnesium Citrate (Citroma Liq) 300 ml PO ONCE ONE Stop: 06/25/18 18:01 Miscellaneous (Pill Splitter) 1 each OTHER UNSCH PRN PRN Reason: SEE LABEL COMMENTS Ondansetron HCl (Zofran Inj) 4 mg IV.PUSH Q6H PRN PRN Reason: NAUSEA OR VOMITING Pantoprazole Sodium (Protonix Inj) 40 mg IV.PUSH Q12H [facility] Last Admin: 06/25/18 08:19 Dose: 40 mg Paroxetine HCl (Paxil) 40 mg PO DAILY [facility] Last Admin: 06/25/18 08:19 Dose: 40 mg Pravastatin Sodium (Pravachol) 40 mg PO QPM [facility] Sennosides (Senokot) 17.2 mg PO Q12H PRN PRN Reason: Moderate Constipation Sitagliptin Phosphate (Januvia) 100 mg PO DAILY [facility] Last Admin: 06/25/18 08:19 Dose: 100 mg Sodium Chloride (Ns Flush) 2 ml IV.FLUSH PRN PRN PRN Reason: FLUSH AFTER USING IV ACCESS Tamsulosin HCl (Flomax) 0.4 mg PO DAILY [facility] Last Admin: 06/25/18 10:01 Dose: 0.4 mg <Chino Cool - Last Filed: 06/25/18 17:00> Allergies Allergy/AdvReac Type Severity Reaction Status Date / Time Iodinated Contrast- Oral and Allergy Altered Verified 06/03/18 06:51 IV Dye Sense of [Contrast] Taste Home Medications Medication Instructions Recorded Confirmed Type apixaban [Eliquis] 5 mg PO BID 06/03/18 06/03/18 History carvedilol [Coreg] 3.125 mg PO BID 06/03/18 06/03/18 History donepezil 10 mg PO DAILY 06/03/18 06/03/18 History fenofibrate 06/03/18 History furosemide [Lasix] 10 mg PO Q3D 06/03/18 06/03/18 History iron aspgl,ps complex-vit C-sa 1 cap PO Q24H 06/03/18 06/03/18 History [Ferrex 150 Plus] lisinopril 2.5 mg PO DAILY 06/03/18 06/03/18 History magnesium 200 mg PO DAILY 06/03/18 06/03/18 History metformin 500 mg PO TID 06/03/18 06/03/18 History paroxetine HCl 40 mg PO DAILY 06/03/18 06/03/18 History simvastatin 20 mg PO QPM 06/03/18 06/03/18 History sitagliptin [Januvia] 100 mg PO DAILY 06/03/18 06/03/18 History tamsulosin [Flomax] 0.4 mg PO DAILY 06/03/18 06/03/18 History Exam Vital signs: Vital Signs 06/24/18 15:48 06/24/18 16:15 06/24/18 16:17 Temperature 98.2 F 98.7 F Pulse Rate 63 76 67 Respiratory Rate 14 20 18 Blood Pressure 122/58 L 128/57 L 128/57 L Pulse Oximetry 97 98 98 06/24/18 17:10 06/24/18 20:12 06/24/18 21:08 Temperature 98.4 F Pulse Rate 64 Respiratory Rate 19 Blood Pressure 165/73 H Pulse Oximetry 98 94 L 98 06/24/18 21:10 06/24/18 21:20 06/25/18 00:34 Temperature 98.6 F 98.6 F Pulse Rate 64 68 Respiratory Rate 18 18 Blood Pressure 140/64 148/65 H Pulse Oximetry 98 96 97 06/25/18 03:55 Temperature 98.3 F Pulse Rate 79 Respiratory Rate 18 Blood Pressure 142/67 H Pulse Oximetry 96 Intake & Output 06/24/18 06/25/18 06/25/18 18:59 06:59 18:59 Intake Total 495 / 495 Balance 495 / 495 Weight 78 kg 71.5 kg Intake: IV 135 / 135 Protonix Inj 80 MG In NS Inj 100 / 100 100 ML @ 10 mls/hr IV.CONT CONT ZACH Rx#:[id number] Protonix Inj 80 MG In NS Inj 35 35 / 35 ML @ 420 mls/hr IV.SIG BOLUS ONE Rx#:[id number] Oral 360 / 360 Other: # Voids 600 # Bowel Movements 0 Weight On Admission 78 kg - Constitutional no acute distress - Routine HEENT Exam Head: Present: normocephalic, atraumatic - Routine Respiratory Exam Absent: accessory muscle use - Routine Cardiovascular Exam Present: RRR - Routine Abdominal Exam Present: soft, normoactive bowel sounds. Absent: tenderness, distended, rebound - Routine Skin Exam Present: dry, warm - Routine Neurological Exam Present: alert, oriented X3 <BonnettseamusCarringtonChar - Last Filed: 06/25/18 08:57> Vital signs: Vital Signs 06/24/18 17:10 06/24/18 20:12 06/24/18 21:08 Temperature 98.4 F Pulse Rate 64 Respiratory Rate 19 Blood Pressure 165/73 H Pulse Oximetry 98 94 L 98 06/24/18 21:10 06/24/18 21:20 06/25/18 00:34 Temperature 98.6 F 98.6 F Pulse Rate 64 68 Respiratory Rate 18 18 Blood Pressure 140/64 148/65 H Pulse Oximetry 98 96 97 06/25/18 03:55 06/25/18 08:00 06/25/18 09:51 Temperature 98.3 F 97.9 F Pulse Rate 79 62 Respiratory Rate 18 16 Blood Pressure 142/67 H 138/62 Pulse Oximetry 96 97 97 06/25/18 09:52 06/25/18 10:09 06/25/18 12:00 Temperature 98.3 F 98.5 F 98.2 F Pulse Rate 79 62 65 Respiratory Rate 18 18 16 Blood Pressure 142/67 H 169/67 H 133/63 Pulse Oximetry 97 96 95 06/25/18 13:26 06/25/18 14:19 06/25/18 14:38 Temperature 98.2 F 98.2 F 98.4 F Pulse Rate 65 65 77 Respiratory Rate 16 18 16 Blood Pressure 133/63 133/63 147/68 H Pulse Oximetry 95 95 97 Intake & Output 06/24/18 06/25/18 06/25/18 18:59 06:59 18:59 Intake Total 495 / 495 200 / 200 Output Total 1050 / 1050 Balance 495 / 495 -850 / -850 Weight 78 kg 71.5 kg Intake: IV 135 / 135 200 / 200 D5W/1/2 NS Inj 1,000 ML @ 50 200 / 200 mls/hr IV.CONT .Q20H [facility] Rx#: [id number] Protonix Inj 80 MG In NS Inj 100 / 100 100 ML @ 10 mls/hr IV.CONT CONT ZACH Rx#:[id number] Protonix Inj 80 MG In NS Inj 35 35 / 35 ML @ 420 mls/hr IV.SIG BOLUS ONE Rx#:[id number] Oral 360 / 360 Intake (Blood Product) Amt 0 / 0 Rbc As-3 Leukoreduced Unit 0 / 0 [id number] Rbc As-3 Leukoreduced Unit 0 / 0 [id number] Output: Urine 1050 / 1050 Other: # Voids 600 # Bowel Movements 0 Weight On Admission 78 kg <Chino Cool - Last Filed: 06/25/18 17:00> Results - Labs CBC & Chem 7: 06/25/18 02:53 06/25/18 02:53 Labs: Laboratory Results - last 24 hr 06/24/18 06/24/18 06/24/18 16:40 16:40 16:40 WBC 5.3 RBC 3.00 L Hgb 8.5 L Hct 25.7 L MCV 85.6 MCH 28.3 MCHC 33.1 RDW 15.7 Plt Count 162 MPV 8.2 Neut % (Auto) 63.8 Lymph % (Auto) 16.8 [place] % (Auto) 15.0 H Eos % (Auto) 3.4 Baso % (Auto) 1.0 Neut # (Auto) 3.4 Lymph # (Auto) 0.9 L [place] # (Auto) 0.8 Eos # (Auto) 0.2 Baso # (Auto) 0.1 WBC Differential . Differential Comment Auto diff final PT 12.2 H INR 1.2 APTT 33.2 H Sodium 137 Potassium 3.6 Chloride 102 Carbon Dioxide 25.9 Anion Gap 9 BUN 10 Creatinine 0.82 Estimated GFR Greater than 89 POC Glucose Random Glucose 98 Calcium 8.2 L Total Bilirubin 0.4 AST 19 ALT 18 Alkaline Phosphatase 99 Total Protein 6.8 Albumin 3.3 L Urine Color Urine Clarity Urine pH Ur Specific [place] Urine Protein Urine Glucose (UA) Urine Ketones Urine Occult Blood Urine Nitrate Urine Bilirubin Urine Urobilinogen Ur Leukocyte Esterase Urine RBC Urine WBC Ur Squamous Epith Cells Urine Mucus Micro UA Comment Ur Microscopic Review Urine Culture Comments Blood Type Antibody Screen MTS Gel Crossmatch 06/24/18 06/24/18 06/24/18 16:40 18:34 22:18 WBC RBC Hgb 7.8 L Hct 23.9 L MCV MCH MCHC RDW Plt Count MPV Neut % (Auto) Lymph % (Auto) [place] % (Auto) Eos % (Auto) Baso % (Auto) Neut # (Auto) Lymph # (Auto) [place] # (Auto) Eos # (Auto) Baso # (Auto) WBC Differential Differential Comment PT INR APTT Sodium Potassium Chloride Carbon Dioxide Anion Gap BUN Creatinine Estimated GFR POC Glucose 106 Random Glucose Calcium Total Bilirubin AST ALT Alkaline Phosphatase Total Protein Albumin Urine Color Urine Clarity Urine pH Ur Specific [place] Urine Protein Urine Glucose (UA) Urine Ketones Urine Occult Blood Urine Nitrate Urine Bilirubin Urine Urobilinogen Ur Leukocyte Esterase Urine RBC Urine WBC Ur Squamous Epith Cells Urine Mucus Micro UA Comment Ur Microscopic Review Urine Culture Comments Blood Type A Positive Antibody Screen Negative MTS Gel Crossmatch 06/24/18 06/25/18 06/25/18 22:45 02:53 02:53 WBC 4.5 RBC 2.86 L Hgb 7.9 L Hct 24.4 L MCV 85.5 MCH 27.8 MCHC 32.6 RDW 15.8 Plt Count 144 L MPV 7.8 Neut % (Auto) 60.4 Lymph % (Auto) 21.2 [place] % (Auto) 14.3 H Eos % (Auto) 3.4 Baso % (Auto) 0.7 Neut # (Auto) 2.7 Lymph # (Auto) 0.9 L [place] # (Auto) 0.6 Eos # (Auto) 0.2 Baso # (Auto) 0.0 WBC Differential . Differential Comment Auto diff final PT 12.7 H INR 1.3 APTT Sodium Potassium Chloride Carbon Dioxide Anion Gap BUN Creatinine Estimated GFR POC Glucose Random Glucose Calcium Total Bilirubin AST ALT Alkaline Phosphatase Total Protein Albumin Urine Color Yellow Urine Clarity Hazy H Urine pH 6.0 Ur Specific [place] 1.012 Urine Protein Negative Urine Glucose (UA) Negative Urine Ketones Trace H Urine Occult Blood Negative Urine Nitrate Negative Urine Bilirubin Negative Urine Urobilinogen Less than 2 Ur Leukocyte Esterase Trace H Urine RBC Less than 1 Urine WBC 5 Ur Squamous Epith Cells <1 Urine Mucus Few H Micro UA Comment Culture not ind Ur Microscopic Review Not Reportable Urine Culture Comments Culture not ind Blood Type Antibody Screen MTS Gel Crossmatch 06/25/18 06/25/18 02:53 07:47 WBC RBC Hgb Hct MCV MCH MCHC RDW Plt Count MPV Neut % (Auto) Lymph % (Auto) [place] % (Auto) Eos % (Auto) Baso % (Auto) Neut # (Auto) Lymph # (Auto) [place] # (Auto) Eos # (Auto) Baso # (Auto) WBC Differential Differential Comment PT INR APTT Sodium 141 Potassium 3.4 L Chloride 106 Carbon Dioxide 26.5 Anion Gap 9 BUN 10 Creatinine 0.82 Estimated GFR Greater than 89 POC Glucose Random Glucose 99 Calcium 8.0 L Total Bilirubin 0.5 AST 17 ALT 19 Alkaline Phosphatase 87 Total Protein 6.2 L D Albumin 3.1 L Urine Color Urine Clarity Urine pH Ur Specific [place] Urine Protein Urine Glucose (UA) Urine Ketones Urine Occult Blood Urine Nitrate Urine Bilirubin Urine Urobilinogen Ur Leukocyte Esterase Urine RBC Urine WBC Ur Squamous Epith Cells Urine Mucus Micro UA Comment Ur Microscopic Review Urine Culture Comments Blood Type Antibody Screen MTS Gel Crossmatch See Detail - Imaging Impressions Chest X-Ray 06/24/18 00:00 CONCLUSION: No acute cardiopulmonary disease. <Char Gilmore - Last Filed: 06/25/18 08:57> - Labs CBC & Chem 7: 06/25/18 02:53 06/25/18 02:53 Labs: Laboratory Results - last 24 hr 06/24/18 06/24/18 06/24/18 16:40 16:40 16:40 WBC 5.3 RBC 3.00 L Hgb 8.5 L Hct 25.7 L MCV 85.6 MCH 28.3 MCHC 33.1 RDW 15.7 Plt Count 162 MPV 8.2 Neut % (Auto) 63.8 Lymph % (Auto) 16.8 [place] % (Auto) 15.0 H Eos % (Auto) 3.4 Baso % (Auto) 1.0 Neut # (Auto) 3.4 Lymph # (Auto) 0.9 L [place] # (Auto) 0.8 Eos # (Auto) 0.2 Baso # (Auto) 0.1 WBC Differential . Differential Comment Auto diff final PT 12.2 H INR 1.2 APTT 33.2 H Sodium 137 Potassium 3.6 Chloride 102 Carbon Dioxide 25.9 Anion Gap 9 BUN 10 Creatinine 0.82 Estimated GFR Greater than 89 POC Glucose Random Glucose 98 Calcium 8.2 L Total Bilirubin 0.4 AST 19 ALT 18 Alkaline Phosphatase 99 Total Protein 6.8 Albumin 3.3 L Urine Color Urine Clarity Urine pH Ur Specific [place] Urine Protein Urine Glucose (UA) Urine Ketones Urine Occult Blood Urine Nitrate Urine Bilirubin Urine Urobilinogen Ur Leukocyte Esterase Urine RBC Urine WBC Ur Squamous Epith Cells Urine Mucus Micro UA Comment Ur Microscopic Review Urine Culture Comments Blood Type Antibody Screen MTS Gel Crossmatch 06/24/18 06/24/18 06/24/18 16:40 18:34 22:18 WBC RBC Hgb 7.8 L Hct 23.9 L MCV MCH MCHC RDW Plt Count MPV Neut % (Auto) Lymph % (Auto) [place] % (Auto) Eos % (Auto) Baso % (Auto) Neut # (Auto) Lymph # (Auto) [place] # (Auto) Eos # (Auto) Baso # (Auto) WBC Differential Differential Comment PT INR APTT Sodium Potassium Chloride Carbon Dioxide Anion Gap BUN Creatinine Estimated GFR POC Glucose 106 Random Glucose Calcium Total Bilirubin AST ALT Alkaline Phosphatase Total Protein Albumin Urine Color Urine Clarity Urine pH Ur Specific [place] Urine Protein Urine Glucose (UA) Urine Ketones Urine Occult Blood Urine Nitrate Urine Bilirubin Urine Urobilinogen Ur Leukocyte Esterase Urine RBC Urine WBC Ur Squamous Epith Cells Urine Mucus Micro UA Comment Ur Microscopic Review Urine Culture Comments Blood Type A Positive Antibody Screen Negative MTS Gel Crossmatch 06/24/18 06/25/18 06/25/18 22:45 02:53 02:53 WBC 4.5 RBC 2.86 L Hgb 7.9 L Hct 24.4 L MCV 85.5 MCH 27.8 MCHC 32.6 RDW 15.8 Plt Count 144 L MPV 7.8 Neut % (Auto) 60.4 Lymph % (Auto) 21.2 [place] % (Auto) 14.3 H Eos % (Auto) 3.4 Baso % (Auto) 0.7 Neut # (Auto) 2.7 Lymph # (Auto) 0.9 L [place] # (Auto) 0.6 Eos # (Auto) 0.2 Baso # (Auto) 0.0 WBC Differential . Differential Comment Auto diff final PT 12.7 H INR 1.3 APTT Sodium Potassium Chloride Carbon Dioxide Anion Gap BUN Creatinine Estimated GFR POC Glucose Random Glucose Calcium Total Bilirubin AST ALT Alkaline Phosphatase Total Protein Albumin Urine Color Yellow Urine Clarity Hazy H Urine pH 6.0 Ur Specific [place] 1.012 Urine Protein Negative Urine Glucose (UA) Negative Urine Ketones Trace H Urine Occult Blood Negative Urine Nitrate Negative Urine Bilirubin Negative Urine Urobilinogen Less than 2 Ur Leukocyte Esterase Trace H Urine RBC Less than 1 Urine WBC 5 Ur Squamous Epith Cells <1 Urine Mucus Few H Micro UA Comment Culture not ind Ur Microscopic Review Not Reportable Urine Culture Comments Culture not ind Blood Type Antibody Screen MTS Gel Crossmatch 0806/[id number] 06/25/18 02:53 07:47 11:14 WBC RBC Hgb Hct MCV MCH MCHC RDW Plt Count MPV Neut % (Auto) Lymph % (Auto) [place] % (Auto) Eos % (Auto) Baso % (Auto) Neut # (Auto) Lymph # (Auto) [place] # (Auto) Eos # (Auto) Baso # (Auto) WBC Differential Differential Comment PT INR APTT Sodium 141 Potassium 3.4 L Chloride 106 Carbon Dioxide 26.5 Anion Gap 9 BUN 10 Creatinine 0.82 Estimated GFR Greater than 89 POC Glucose 119 H Random Glucose 99 Calcium 8.0 L Total Bilirubin 0.5 AST 17 ALT 19 Alkaline Phosphatase 87 Total Protein 6.2 L D Albumin 3.1 L Urine Color Urine Clarity Urine pH Ur Specific [place] Urine Protein Urine Glucose (UA) Urine Ketones Urine Occult Blood Urine Nitrate Urine Bilirubin Urine Urobilinogen Ur Leukocyte Esterase Urine RBC Urine WBC Ur Squamous Epith Cells Urine Mucus Micro UA Comment Ur Microscopic Review Urine Culture Comments Blood Type Antibody Screen MTS Gel Crossmatch See Detail 06/25/18 16:19 WBC RBC Hgb Hct MCV MCH MCHC RDW Plt Count MPV Neut % (Auto) Lymph % (Auto) [place] % (Auto) Eos % (Auto) Baso % (Auto) Neut # (Auto) Lymph # (Auto) [place] # (Auto) Eos # (Auto) Baso # (Auto) WBC Differential Differential Comment PT INR APTT Sodium Potassium Chloride Carbon Dioxide Anion Gap BUN Creatinine Estimated GFR POC Glucose 132 H Random Glucose Calcium Total Bilirubin AST ALT Alkaline Phosphatase Total Protein Albumin Urine Color Urine Clarity Urine pH Ur Specific [place] Urine Protein Urine Glucose (UA) Urine Ketones Urine Occult Blood Urine Nitrate Urine Bilirubin Urine Urobilinogen Ur Leukocyte Esterase Urine RBC Urine WBC Ur Squamous Epith Cells Urine Mucus Micro UA Comment Ur Microscopic Review Urine Culture Comments Blood Type Antibody Screen MTS Gel Crossmatch - Imaging Impressions Chest X-Ray 06/24/18 00:00 CONCLUSION: No acute cardiopulmonary disease. <Chino Cool - Last Filed: 06/25/18 17:00> Assessment and Plan - Plan Assessment: - Anemia, normocytic with reports of black, tarry stools and intermittent BRB in stools Pt on Eliquis for a-fib, last dose was Saturday morning. Pt reports frequent episodes of epistaxis, so severe that he has had rhino rockets and previous cauterizations done by his ENT in [place], most recently 2 months ago. Reports the black, tarry stools are related to the nose bleeds and resolve shortly after. Also complaining of intermittent episodes of BRB in his stool over the past year. Denies any nausea, vomiting, heartburn, changes in stool consistency. Of note, also reports 9 pound weight loss over the past three weeks, has regained some of the weight but unsure if this is from fluid retention secondary to his CHF. Denies ETOH and smoking. Takes occasional Excedrin for migraines. Plan: EGD and colonoscopy tomorrow Obtain consent Clear liquids today Mag Citrate prep NPO after MN Monitor H/H Protonix Eliquis on hold Further recommendations to follow Pt has been seen and examined by myself and Dr. Cool and this note is written on his behalf <Char Gilmore - Last Filed: 06/25/18 08:57> - Plan Seen and examined with [employer], no active bleeding. Eliquis on hold by the patient due to nose bleeds.EGD/Colonoscopy tomorrow. The exam, history, and the medical decision-making described in the above note were completed with the assistance of the mid-level provider. I reviewed and agree with the findings presented. I attest that I had a [id number] encounter with the patient on the same day, and personally performed and documented my assessment and findings in the medical record. <Chino Cool - Last Filed: 06/25/18 17:00>
[2018-06-25] MEDS: Fenofibrate 145 MG Tablet PO SCH (10:02)
[2018-06-25] MEDS: Lisinopril 5 MG Tablet PO SCH (10:03)
[2018-06-25] MEDS: Insulin NovoLOG Aspart Correctional Sugar Inj SQ SCH ×3 (11:28→22:16)
[2018-06-25] MEDS ORDERED: Magnesium Citrate Liq 300 ML Bottle PO ONE ×2 (16:00→18:00)
[2018-06-25 17:41] LABS: Hemoglobin A1c 5.9 % (4.3-6.0)
[2018-06-25 18:15] LABS: Hematocrit 32.2 % (39.0-51.0); Hemoglobin 10.9 gm/dL (13.0-17.0)
[2018-06-26] MEDS ORDERED: Dextrose 5%/NaCl 0.45% Inj 1,000 ML IV.CONT SCH
[2018-06-26] MEDS ORDERED: Metoprolol Tartrate 25 MG Tablet PO SCH (06:00)
[2018-06-26] MEDS ORDERED: Chlorhexidine Gluconate 2% 1 Pack (2 Cloths) TOPICAL SCH (06:00)
[2018-06-26] MEDS ORDERED: Sodium Chlor 0.9% Inj 500 ML IV.SIG SCH (06:00)
[2018-06-26 06:03] LABS: Baso % (Auto) 0.9 % (0.0-2.0); Eos # (Auto) 0.1 th/mm3 (0.0-0.4); Eos % (Auto) 2.6 % (0.0-4.0); Hematocrit 30.7 % (39.0-51.0); Hemoglobin 10.2 gm/dL (13.0-17.0); Lymph # (Auto) 0.8 th/mm3 (1.0-4.8); Lymph % (Auto) 17.7 % (9.0-44.0); Mean Corpuscular HGB Conc 33.3 % (32.0-36.0); Mean Corpuscular Hemoglobin 28.4 pg (27.0-34.0); Mean Corpuscular Volume 85.3 fL (80.0-100.0); Mean Platelet Volume 7.7 fL (7.0-11.0); Mono # (Auto) 0.8 th/mm3 (0.0-0.9); Neut # (Auto) 2.7 th/mm3 (1.8-7.7); Neut % (Auto) 60.8 % (16.0-70.0); Platelet Count 144 th/mm3 (150-450); Red Cell Distribution Width 15.7 % (11.6-17.2); White Blood Count 4.4 th/mm3 (4.0-11.0)
[2018-06-26 06:26] LABS: Calcium 8.1 mg/dL (8.5-10.1); Carbon Dioxide 28.9 meq/L (21.0-32.0); Potassium 3.6 meq/L (3.5-5.1)
[2018-06-26] MEDS: Pantoprazole Inj 40 MG Vial IV.PUSH SCH (07:15)
[2018-06-26] MEDS: Lisinopril 5 MG Tablet PO SCH (07:35)
[2018-06-26] MEDS: Fenofibrate 145 MG Tablet PO SCH (07:35)
--- NOTE | 2018-06-26 08:11 | P.PNFP ---
Addendum entered and electronically signed by Donny Mckeon MD, R3 06/26/18 12 :50: Patient was being treated for post-hemorrhagic anemia likely related to possible GI bleed vs Epistaxis Original Note: Subjective Interval history: Patient seen and examined after endoscopy procedure earlier this morning. No acute events overnight. Patient states that he tolerated procedure well. He endorses no new episodes of epistaxis or GI bleeding overnight. He reports that he feels "100% better" since his blood transfusion and would like to be discharged home today. We thoroughly discussed his Eliquis use regarding his bleeding. Patient states that he would like to self discontinue his Eliquis until he is evaluated by both his ENT and director of consumer affairs for further recommendations. We thoroughly discussed the increased risks associated with discontinuing his Eliquis as this could lead to multiple bad outcomes including but not limited to a possible stroke or even . Patient and his sons state that they understand all of these risks and will discontinue the Eliquis at this time. Otherwise he has no complaints and denies a complete review of systems including but not limited to any fevers, chills, shortness of breath, chest pain, NVD, abdominal pain, or calf tenderness. <Donny Mckeon H - 06/26/18 11:51> Results - Labs Result diagrams: 06/26/18 04:51 06/26/18 04:51 <Lary Metzger - 06/26/18 15:24> Abnormal lab results 06/25/18 06/25/18 06/25/18 Range/Units 07:47 16:19 18:00 RBC (4.50-5.90) mil/mm3 Hgb 10.9 L D (13.0-17.0) gm/dL Hct 32.2 L (39.0-51.0) % Plt Count (150-450) th/mm3 [place] % (Auto) (0.0-8.0) % Lymph # (Auto) (1.0-4.8) th/mm3 POC Glucose 132 H (68-110) mg/dl Random Glucose (74-106) mg/dL Calcium (8.5-10.1) mg/dL MTS Gel Crossmatch See Detail 06/25/18 06/26/18 06/26/18 Range/Units 22:13 04:51 04:51 RBC 3.60 L (4.50-5.90) mil/mm3 Hgb 10.2 L (13.0-17.0) gm/dL Hct 30.7 L (39.0-51.0) % Plt Count 144 L (150-450) th/mm3 [place] % (Auto) 18.0 H (0.0-8.0) % Lymph # (Auto) 0.8 L (1.0-4.8) th/mm3 POC Glucose 119 H (68-110) mg/dl Random Glucose 133 H (74-106) mg/dL Calcium 8.1 L (8.5-10.1) mg/dL MTS Gel Crossmatch 06/26/18 06/26/18 Range/Units 10:04 11:49 RBC (4.50-5.90) mil/mm3 Hgb (13.0-17.0) gm/dL Hct (39.0-51.0) % Plt Count (150-450) th/mm3 [place] % (Auto) (0.0-8.0) % Lymph # (Auto) (1.0-4.8) th/mm3 POC Glucose 133 H 130 H (68-110) mg/dl Random Glucose (74-106) mg/dL Calcium (8.5-10.1) mg/dL MTS Gel Crossmatch Short CBC 06/25/18 06/26/18 Range/Units 18:00 04:51 WBC 4.4 (4.0-11.0) th/mm3 Hgb 10.9 L D 10.2 L (13.0-17.0) gm/dL Hct 32.2 L 30.7 L (39.0-51.0) % Plt Count 144 L (150-450) th/mm3 [facility] 06/26/18 04:51 Sodium 142 Potassium 3.6 Chloride 104 Carbon Dioxide 28.9 BUN 10 Creatinine 0.83 Calcium 8.1 L <Lary Metzger - 06/26/18 15:24> Abnormal lab results 06/25/18 06/25/18 06/25/18 Range/Units 07:47 11:14 16:19 RBC (4.50-5.90) mil/mm3 Hgb (13.0-17.0) gm/dL Hct (39.0-51.0) % Plt Count (150-450) th/mm3 [place] % (Auto) (0.0-8.0) % Lymph # (Auto) (1.0-4.8) th/mm3 POC Glucose 119 H 132 H (68-110) mg/dl Random Glucose (74-106) mg/dL Calcium (8.5-10.1) mg/dL MTS Gel Crossmatch See Detail 06/25/18 06/25/18 06/26/18 Range/Units 18:00 22:13 04:51 RBC 3.60 L (4.50-5.90) mil/mm3 Hgb 10.9 L D 10.2 L (13.0-17.0) gm/dL Hct 32.2 L 30.7 L (39.0-51.0) % Plt Count 144 L (150-450) th/mm3 [place] % (Auto) 18.0 H (0.0-8.0) % Lymph # (Auto) 0.8 L (1.0-4.8) th/mm3 POC Glucose 119 H (68-110) mg/dl Random Glucose (74-106) mg/dL Calcium (8.5-10.1) mg/dL MTS Gel Crossmatch 06/26/18 Range/Units 04:51 RBC (4.50-5.90) mil/mm3 Hgb (13.0-17.0) gm/dL Hct (39.0-51.0) % Plt Count (150-450) th/mm3 [place] % (Auto) (0.0-8.0) % Lymph # (Auto) (1.0-4.8) th/mm3 POC Glucose (68-110) mg/dl Random Glucose 133 H (74-106) mg/dL Calcium 8.1 L (8.5-10.1) mg/dL MTS Gel Crossmatch Short CBC 06/25/18 06/26/18 Range/Units 18:00 04:51 WBC 4.4 (4.0-11.0) th/mm3 Hgb 10.9 L D 10.2 L (13.0-17.0) gm/dL Hct 32.2 L 30.7 L (39.0-51.0) % Plt Count 144 L (150-450) th/mm3 BMP 06/26/18 04:51 Sodium 142 Potassium 3.6 Chloride 104 Carbon Dioxide 28.9 BUN 10 Creatinine 0.83 Calcium 8.1 L <Donny Mckeon H - 06/26/18 08:11> Physical Exam Vital signs: Vital Signs 06/25/18 16:00 06/25/18 17:42 06/25/18 20:00 Temperature 97.9 F 98.4 F 98.2 F Pulse Rate 60 85 69 Respiratory Rate 16 18 17 Blood Pressure 146/69 H 146/69 H 139/67 Pulse Oximetry 96 96 06/25/18 22:00 06/26/18 00:00 06/26/18 04:00 Temperature 98.2 F 97.7 F Pulse Rate 61 76 60 Respiratory Rate 17 17 Blood Pressure 124/58 L 133/76 Pulse Oximetry 95 97 06/26/18 08:00 06/26/18 10:00 06/26/18 10:10 Temperature 97.8 F 97.9 F 97.9 F Pulse Rate 60 61 64 Respiratory Rate 16 16 16 Blood Pressure 155/69 H 106/46 L 110/48 L Pulse Oximetry 96 94 L 93 L 06/26/18 12:00 Temperature 97.6 F Pulse Rate 65 Respiratory Rate 18 Blood Pressure 137/63 Pulse Oximetry 98 Intake & Output 06/25/18 06/26/18 06/26/18 18:59 06:59 18:59 Intake Total 400 / 400 450 / 450 3000 / 3000 Output Total 1050 / 1050 Balance -650 / -650 450 / 450 3000 / 3000 Weight 71.2 kg Intake: IV 400 / 400 450 / 450 3000 / 3000 D5W/1/2 NS Inj 1,000 ML @ 75 200 / 200 1000 / 1000 mls/hr IV.CONT .[id number] [facility] Rx# :[id number] LR 1000 mL Inj 1,000 ML @ 30 1000 / 1000 mls/hr IV.SIG .Q24H [facility] Rx#: [id number] NS Inj 250 ML @ 15 mls/hr IV. 250 / 250 SIG ONCE [facility] Rx#:[id number] Intake (Blood Product) Amt 0 / 0 Rbc As-3 Leukoreduced Unit 0 / 0 [id number] Rbc As-3 Leukoreduced Unit 0 / 0 [id number] Output: Urine 1050 / 1050 Other: # Voids 3 Date of Last Bowel Movement 08/30/18 # Bowel Movements 4 <Lary Metzger M - 06/26/18 15:24> Vital Signs 06/25/18 09:51 06/25/18 09:52 06/25/18 10:09 Temperature 98.3 F 98.5 F Pulse Rate 79 62 Respiratory Rate 18 18 Blood Pressure 142/67 H 169/67 H Pulse Oximetry 97 97 96 06/25/18 12:00 06/25/18 13:26 06/25/18 14:19 Temperature 98.2 F 98.2 F 98.2 F Pulse Rate 65 65 65 Respiratory Rate 16 16 18 Blood Pressure 133/63 133/63 133/63 Pulse Oximetry 95 95 95 06/25/18 14:38 06/25/18 16:00 06/25/18 17:42 Temperature 98.4 F 97.9 F 98.4 F Pulse Rate 77 60 85 Respiratory Rate 16 16 18 Blood Pressure 147/68 H 146/69 H 146/69 H Pulse Oximetry 97 96 06/25/18 20:00 06/25/18 22:00 06/26/18 00:00 Temperature 98.2 F 98.2 F Pulse Rate 69 61 76 Respiratory Rate 17 17 Blood Pressure 139/67 124/58 L Pulse Oximetry 96 95 06/26/18 04:00 Temperature 97.7 F Pulse Rate 60 Respiratory Rate 17 Blood Pressure 133/76 Pulse Oximetry 97 Intake & Output 06/25/18 06/26/18 06/26/18 18:59 06:59 18:59 Intake Total 200 / 200 Output Total 1050 / 1050 Balance -850 / -850 Weight 71.2 kg Intake: IV 200 / 200 D5W/1/2 NS Inj 1,000 ML @ 50 200 / 200 mls/hr IV.CONT .Q20H [facility] Rx#: [id number] Intake (Blood Product) Amt 0 / 0 Rbc As-3 Leukoreduced Unit 0 / 0 [id number] Rbc As-3 Leukoreduced Unit 0 / 0 [id number] Output: Urine 1050 / 1050 Other: # Voids 3 Date of Last Bowel Movement 06/26/18 # Bowel Movements 4 <Donny Mckeon H - 06/26/18 08:11> Narrative: GENERAL: Thin, elderly male lying in bed watching television in no acute distress with his son at bedside. SKIN: Warm and dry. Pale appearing. No rash. Improved capillary refill less than 3 seconds. HEENT: Atraumatic, normocephalic with extraocular motions intact. No rhinorrhea. No visible LAD or JVD appreciated. CARDIOVASCULAR: Regular rate and rhythm without obvious murmurs, gallops, or rubs. 2+ pulses in all four extremities. RESPIRATORY: Clear to auscultation bilaterally with no crackles, wheezes, or rhonchi. No increased work of breathing. GASTROINTESTINAL: Abdomen soft, non-tender, nondistended with positive bowel sounds. No masses appreciated. MUSCULOSKELETAL: No cyanosis or edema. No calf tenderness. Ambulating well without assistance. NEURO/PSYCH: Afocal. Awake, alert, and oriented x3. Oriented PPT 3. Normal speech and judgement. Patient is not able to recall complete medical history and medications likely secondary to dementia. Medical plans discussed with son at bedside. <Donny Mckeon - 06/26/18 11:51> Assessment and Plan - Assessment (1) GI bleed Code(s): K92.2 - Gastrointestinal hemorrhage, unspecified Status: Acute (2) Epistaxis Code(s): R04.0 - Epistaxis Status: Acute (3) Dementia Code(s): F03.90 - Unspecified dementia without behavioral disturbance Status: Chronic (4) Diabetes Code(s): E11.9 - Type 2 diabetes mellitus without complications Status: Chronic (5) Coronary artery disease Code(s): I25.10 - Atherosclerotic heart disease of [place] coronary artery without angina pectoris Status: Chronic (6) Hypertension Code(s): I10 - Essential (primary) hypertension Status: Chronic (7) Iron deficiency anemia Code(s): D50.9 - Iron deficiency anemia, unspecified Status: Chronic (8) CHF (congestive heart failure) Code(s): I50.9 - Heart failure, unspecified Status: Chronic (9) Atrial fibrillation Code(s): I48.91 - Unspecified atrial fibrillation Status: Chronic (10) GERD (gastroesophageal reflux disease) Code(s): K21.9 - Gastro-esophageal reflux disease without esophagitis Status: Chronic (11) Insomnia Code(s): G47.00 - Insomnia, unspecified Status: Chronic (12) BPH (benign prostatic hyperplasia) Code(s): N40.0 - Benign prostatic hyperplasia without lower urinary tract symptoms Status: Chronic (13) Nutrition, metabolism, and development symptoms Code(s): R63.8 - Other symptoms and signs concerning food and fluid intake Status: Acute (14) DVT prophylaxis Status: Acute <Lary Metzger - 06/26/18 15:24> (1) GI bleed Code(s): K92.2 - Gastrointestinal hemorrhage, unspecified Status: Acute Plan: Patient presenting with symptomatic anemia with possibility of acute on chronic GI bleed vs severe epistaxis. Hemoglobin in office 6.9. Patient chronically anticoagulated with Eliquis, patient has held medication for 3-4 days. -H/H: 8.5/25.7, 7.8/23.9, 7.9/24.4 -Post transfusion H/H: 10.9/32.2 -Hemoccult: Positive in ER per report (patient is on supplemental iron which can cause false positive) -Electrolytes: within normal limits -EGD 06/26/18: Biopsy obtained, continue PPI, antireflux regimen, avoid NSAIDs, repeat EGD in 1 year -Colonoscopy 06/26/13: Moderate diverticulosis without bleeding, large circumferential diffuse abnormal mucosa throughout the colon with biopsy obtained, flat polyp ranging between 5-9 mm in size obtained using snare cautery in the rectum, flat polyp ranging between 3-5 mm in size in the sigmoid colon obtained using cold forceps, retroflexed views revealed medium internal hemorrhoids, exam revealed external hemorrhoids, continue surveillance, Benefiber 2 teaspoons daily, yearly Hemoccult, high-fiber diet, no seeds/notes/ popcorn, repeat colonoscopy in one year -Advance to diabetic diet as tolerated after procedure -Consult GI, appreciate recommendations -2 units PRBC ordered; goal to maintain hemoglobin above 8 due to coronary artery disease Medications: -Start Protonix 40 mg p.o. twice daily -Zofran as needed for nausea/vomiting (2) Epistaxis Code(s): R04.0 - Epistaxis Status: Acute Plan: Patient with reported episodes of epistaxis while on Eliquis. Patient has history of embolization, balloon pressure, and transfusion secondary to his bleeding. Patient reports no acute bleeding over the last 24 hours. Patient reported he was advised by director of consumer affairs that he may need to weigh risks versus benefits of anticoagulation with his epistaxis. -Patient reports no bleeding over the last 24 hours -Continue to monitor vital signs and hemoglobin -Blood transfusion as above -Patient referred to ENT for further evaluation as an outpatient (3) Dementia Code(s): F03.90 - Unspecified dementia without behavioral disturbance Status: Chronic Plan: Patient with reported dementia, however is unable to report type -Patient currently AAO 3 and oriented PPT 3 -Reported POA per chart is patient's daughter, Shirley Tipton [phone], and son, Deni Whitfield [phone] -Patient currently living with son who assists him with daily activities Medications: -Continue daily donepezil (4) Diabetes Code(s): E11.9 - Type 2 diabetes mellitus without complications Status: Chronic Plan: Patient with history of type 2 diabetes mellitus, not requiring insulin. Patient reports stable blood glucose on metformin and Januvia. Patient unaware of baseline on glucose as he does not monitor his blood sugar. -CMP: Glucose 99 -UA: Hazy, mucus, trace ketones, negative glucose, trace leukocyte esterase; otherwise within normal limits -Hemoglobin A1c: 5.9 -Plan to advance diet to diabetic diet once n.p.o. order is lifted Medications: Hold home metformin and Januvia Low-dose sliding scale insulin per protocol (5) Coronary artery disease Code(s): I25.10 - Atherosclerotic heart disease of [place] coronary artery without angina pectoris Status: Chronic Plan: Patient with history of coronary artery disease s/p CABG procedure. Patient also with CHF and defibrillator in place. Patient also anticoagulated on Eliquis, per patient has been held for 3-4 days. -Due to coronary artery disease, plan to maintain hemoglobin above 8 -Lasix to be ordered with blood transfusion if indicated -Telemetry Medications: -Continue home pravastatin -Hold Eliquis (6) Hypertension Code(s): I10 - Essential (primary) hypertension Status: Chronic Plan: Patient with history of essential hypertension. -Blood pressure 108/48 in office -Blood pressure 122/58-165/73 over the first 24 hours of hospitalization -Baseline 165/70 per patient Medications: -Continue home lisinopril 2.5 mg daily. -Continue Lasix 10 mg every 72 hours (7) Iron deficiency anemia Code(s): D50.9 - Iron deficiency anemia, unspecified Status: Chronic Plan: Patient with history of iron deficiency anemia per chart review -Patient currently on supplemental iron which can cause false positive Hemoccult -Blood transfusion as above Medications: Hold home iron (8) CHF (congestive heart failure) Code(s): I50.9 - Heart failure, unspecified Status: Chronic Plan: Patient with history of CHF and defibrillator placement. Currently managed by director of consumer affairs in [place], [place]. -Patient unsure of most recent ejection fraction or other echocardiogram information -Recent interrogation by director of consumer affairs in [place] normal in March Medications: -Continue home carvedilol 3.125 mg twice daily Continue home Lasix 10 mg every 72 hours (9) Atrial fibrillation Code(s): I48.91 - Unspecified atrial fibrillation Status: Chronic Plan: Patient with reported atrial fibrillation per chart review currently anticoagulated on Eliquis -Telemetry -Patient chronically anticoagulated with Eliquis, held per patient for the last 3-4 days Medications: -Hold home Eliquis -Continue carvedilol 3.125 mg twice daily (10) GERD (gastroesophageal reflux disease) Code(s): K21.9 - Gastro-esophageal reflux disease without esophagitis Status: Chronic Plan: Patient with history of GERD Medications: -Continue pantoprazole 40 mg bid (11) Insomnia Code(s): G47.00 - Insomnia, unspecified Status: Chronic Plan: Patient with history of insomnia Medications: Continue home Xanax 0.25 mg as needed insomnia (12) BPH (benign prostatic hyperplasia) Code(s): N40.0 - Benign prostatic hyperplasia without lower urinary tract symptoms Status: Chronic Plan: Patient with history of BPH Medications: Continue home tamsulosin (13) Nutrition, metabolism, and development symptoms Code(s): R63.8 - Other symptoms and signs concerning food and fluid intake Status: Acute Plan: Fluids: Plan to discontinue D5 half-normal saline postprocedure patient is able to tolerate diet Electrolytes: Hypokalemia resolved, continue to monitor Nutrition: Advance to diabetic diet as tolerated after endoscopy Prophylaxis: Pantoprazole PO twice daily, albuterol as needed for shortness of breath/wheezing, clonidine as needed for blood pressure greater than 180/110, alprazolam 0.25 mg as needed for insomnia, constipation protocol in place, diphenhydramine as needed for itching, Tylenol as needed for fever/pain, incentive spirometry -PT ordered recommended discharge (14) DVT prophylaxis Status: Acute Plan: -SCDs only -Patient chronically anticoagulated with Eliquis, held due to possible GI bleed and anemia <Donny Mckeon - 06/26/18 11:46> - Assessment and Plan 82-year-old male, history of recurrent episodes of epistaxis and black stools times 1 year, diabetes, coronary artery disease, hypertension, iron deficiency anemia, CHF, atrial fibrillation, GERD, presents with history of recent epistaxis, bloody stool, and anemia. <Donny Mckeon - 06/26/18 08:11> - Attending Attestation The exam, history, and the medical decision-making described in the above note were completed with the assistance of the resident physician. I reviewed and agree with the findings presented. I attest that I did not have a [id number] encounter as he was in colonoscopy with the patient on the same day, and personally performed and documented my assessment and findings in the medical record. He was down getting colonoscopy when I went to his room by agree with Dr. Mckeon discharging him since he is doing well and he is stable. Dr. Mckeon is his regular outpatient doctor and can follow him up as well as GI can follow him <Lary Metzger M - 06/26/18 15:24> <Donny Mckeon H - Last Filed: 06/26/18 11:46> (3) Dementia Qualifiers: Dementia type: unspecified type (4) Diabetes Qualifiers: Diabetes mellitus type: type 2 <Lary Metzger M - Last Filed: 06/26/18 15:24> (3) Dementia Qualifiers: Dementia type: unspecified type (4) Diabetes Qualifiers: Diabetes mellitus type: type 2 <Donny Mckeon - Last Filed: 06/26/18 11:46> (3) Dementia Qualifiers: Dementia type: unspecified type (4) Diabetes Qualifiers: Diabetes mellitus type: type 2 <Lary Metzger M - Last Filed: 06/26/18 15:24> (3) Dementia Qualifiers: Dementia type: unspecified type (4) Diabetes Qualifiers: Diabetes mellitus type: type 2
--- NOTE | 2018-06-26 09:38 | GIPROC ---
[facility] [address] [facility]. [facility], [address] EGD PROCEDURE REPORT EXAM DATE: 06/26/2018 PATIENT NAME: Pratik Whitfield MR #: [id number] BIRTHDATE: 1935 ATTENDING: Chino Cool MD ORDER #: [id number] FENCE INSTALLER HELPER: Maribeth Barreto and Patito Pozo STATUS: inpatient INDICATIONS: The patient is a 82 yr old male here for an EGD due to iron deficiency anemia PROCEDURE PERFORMED: EGD w/ biopsy MEDICATIONS: None and Per Anesthesia. TOPICAL ANESTHETIC: CONSENT: The patient understands the risks and benefits of the procedure and understands that these risks include, but are not limited to: sedation, allergic reaction, infection, perforation and/or bleeding. Alternative means of evaluation and treatment include, among others: physical exam, x-rays, and/or surgical intervention. The patient elects to proceed with this endoscopic procedure. medical equipment was checked for proper function. Hand hygiene and appropriate measures for infection prevention was taken. After the risks, benefits and alternatives of the procedure were thoroughly explained, Informed consent was verified, confirmed and timeout was successfully executed by the treatment team. The patient was anesthetized with topical anesthesia and the [id number] (Pedi C) endoscope was introduced through the mouth and advanced to the second portion of the duodenum. Retroflexed views revealed no abnormalities The gastroscope was then slowly withdrawn and removed. ESOPHAGUS: The mucosa of the esophagus appeared normal. STOMACH: There was erythematous moderate gastritis in the gastric body. A biopsy was performed using cold forceps. Sample sent for histology. DUODENUM: The duodenal mucosa appeared normal in the bulb and second portion of the duodenum. ADVERSE EVENTS: There were no complications. IMPRESSIONS: 1. The esophagus appeared normal 2. There was erythematous gastritis in the gastric body; biopsy was performed 3. Normal duodenal mucosa in the bulb and second portion of the duodenum 4. Retroflexed views revealed no abnormalities RECOMMENDATIONS: 1. Await biopsy results. Biopsy results will not be ready for 7-10 days. If you don't hear from us in two weeks, call our office for biopsy results. 2. Anti-reflux regimen 3. Continue PPI 4. Avoid NSAIDS PATIENT CONDITION: stable DISPOSITION: Inpatient REPEAT EXAM: Return 1 year EGD pending biopsy results Chino Cool MD eSigned: Chino Cool MD 06/26/2018 9:38 AM cc: PATIENT NAME: Pratik Whitfield MR#: [id number]
--- NOTE | 2018-06-26 09:52 | GIPROC ---
[facility] [address] [facility]. [facility], [address] COLONOSCOPY PROCEDURE REPORT EXAM DATE: 06/26/2018 PATIENT NAME: Pratik Whitfield MR #: [id number] BIRTHDATE: 1935 ENDOSCOPIST: Chino Cool MD ORDER #: [id number] BUSINESS REPRESENTATIVE: Maribeth Barreto and Patito Pozo STATUS: inpatient INDICATIONS: The patient is a 82 yr old male here for a colonoscopy due to iron deficiency anemia PROCEDURE PERFORMED: Colonoscopy with biopsy MEDICATIONS: None and Per Anesthesia. PREP QUALITY: The [place] Bowel Prep Score was Right colon 2, Mid colon 2, and Left colon 3. Total = 7. PREP TYPE:GoLytely ESTIMATED BLOOD LOSS: None CONSENT: The patient understands the risks and benefits of the procedure and understands that these risks include, but are not limited to: sedation, allergic reaction, infection, perforation and/or bleeding. Alternative means of evaluation and treatment include, among others: physical exam, x-rays, and/or surgical intervention. The patient elects to proceed with this endoscopic procedure. medical equipment was checked for proper function. Hand hygiene and appropriate measures for infection prevention was taken. After the risks, benefits and alternatives of the procedure were thoroughly explained, Informed consent was verified, confirmed and timeout was successfully executed by the treatment team. A digital exam revealed external hemorrhoids The Pentax [id number] endoscope was introduced through the anus and advanced to the cecum, which was identified by both the appendix and ileocecal valve. The instrument was then slowly withdrawn as the colon was fully examined. COLON FINDINGS: Moderate diverticulosis was noted in the sigmoid colon. No bleeding was noted from the diverticulosis. A large sized circumferential diffuse patch of abnormal mucosa was found throughout the entire examined colon. Melanosis. A biopsy was performed using cold forceps. A polypoid shaped flat polyp ranging between 5-9mm in size was found in the rectum. A polypectomy was performed using snare cautery. The resection was complete and the polyp tissue was completely retrieved. A polypoid shaped flat polyp ranging between 3-5mm in size was found in the sigmoid colon. A biopsy was performed using cold forceps. Retroflexed views revealed internal hemorrhoids and Retroflexed views revealed medium internal hemorrhoids The scope was then completely withdrawn from the patient and the procedure terminated. PROCEDURE WITHDRAWAL TIME:8minutes ADVERSE EVENTS: There were no complications. IMPRESSIONS: 1. Moderate diverticulosis was noted in the sigmoid colon 2. Large sized circumferential diffuse abnormal mucosa was found throughout the entire examined colon; biopsy was performed using cold forceps 3. A flat polyp ranging between 5-9mm in size was found in the rectum; polypectomy was performed using snare cautery 4. A flat polyp ranging between 3-5mm in size was found in the sigmoid colon; biopsy was performed using cold forceps 5. Retroflexed views revealed internal hemorrhoids 6. Retroflexed views revealed medium internal hemorrhoids 7. Revealed external hemorrhoids RECOMMENDATIONS: 1. Await biopsy results. Biopsy results will not be ready for 7-10 days. If you don't hear from us in two weeks, call our office for results. 2. Benefiber 2 tsp daily 3. Continue surveillance 4. Yearly hemoccult 5. High fiber diet 6. No seeds, nuts and popcorn in diet RECALL: Return 1 year Colonoscopy, pending biopsy results Chino Cool MD eSigned: Chino Cool MD 06/26/2018 9:52 AM cc: PATIENT NAME: Pratik Whitfield MR#: [id number]
--- NOTE | 2018-06-26 10:53 | ECG ---
Date Performed: 06/26/2018 Time Performed: 08:24:19 PTAGE: 82 years EK% Ventricular Pacing Atrial Rhythm is difficult to decipher due to artifact ABNORMAL RHY THM ECG NO PREVIOUS TRACING No prior for comparison DOCTOR: Corona Pat Interpretating Date/Time 06/26/2018 10:49:38
[2018-06-26] MEDS: Insulin NovoLOG Aspart Correctional Sugar Inj SQ SCH ×2 (11:32→11:50)
[2018-06-26] MEDS ORDERED: Phenylephrine/NS 1000 MCG/10ML Syringe IV.PUSH ONE (12:00)
[2018-06-26] MEDS ORDERED: Lidocaine PF 1% Inj 5 ML Syringe INFILTRATN ONE (12:00)
[2018-06-26 12:53] VITALS: BP 137/63; PULSE 65; RESP 18; TEMP 97.6; O2SAT 98
--- NOTE | 2018-06-26 15:55 | P.DS ---
Date of admission: 06/24/18 18:47 Primary care physician: No Primary Care Physician Attending physician on discharge: Lary Metzger Anticipated date of discharge: 06/26/18 Brief History from admission: 82-year-old male, history of recurrent episodes of epistaxis and black stools times 1 year, diabetes, coronary artery disease, hypertension, iron deficiency anemia, CHF, atrial fibrillation, GERD, presents with history of recent epistaxis, bloody stool, and anemia. The patient is present with his son and daughter who assist in his explanation of his medical history. The patient states that he has been on Eliquis for 3 years and has had issues with epistaxis over the last year. The episodes have been quite severe and he has had to have a transfusion, attempted cauterization in his nostril, balloon placement in his nostril, and multiple episodes of symptomatic anemia. Each time he has had a nasal bleed, he has also had black stool at the same time for 2-3 days. He is not sure if he has ever told her doctor this before. 1 or 2 times over the last year he has seen blood in his stool. In this last episode, he had a nasal bleed from Saturday to Saturday and he saw black and bloody stools from Saturday to Saturday. He, per family, has been more fatigued, had a decreased appetite, and has been laying in bed much more. Patient denies any shortness of breath or chest pain. He denies that he is got much more fatigued. He thinks that he feels relatively fine. DS: Diagnosis - Discharge Diagnosis (1) GI bleed Status: Acute Diagnosis: Principal (2) Epistaxis Status: Acute Diagnosis: Principal (3) Dementia Status: Chronic Diagnosis: Secondary (4) Diabetes Status: Chronic Diagnosis: Secondary (5) Coronary artery disease Status: Chronic Diagnosis: Secondary (6) Hypertension Status: Chronic Diagnosis: Secondary (7) Iron deficiency anemia Status: Chronic (8) CHF (congestive heart failure) Status: Chronic Diagnosis: Secondary (9) Atrial fibrillation Status: Chronic Diagnosis: Secondary (10) GERD (gastroesophageal reflux disease) Status: Chronic Diagnosis: Secondary (11) Insomnia Status: Chronic Diagnosis: Secondary (12) BPH (benign prostatic hyperplasia) Status: Chronic Diagnosis: Secondary (13) Nutrition, metabolism, and development symptoms Status: Acute Diagnosis: Principal (14) DVT prophylaxis Status: Acute Diagnosis: Principal DS: Medications - Discharge Medications Prescriptions: pantoprazole 40 mg PO BID #60 tab wheat dextrin [Benefiber Sugar Free (dextrin)] 2 tsp PO DAILY #1 bottle DS: Summary Hospital Course: Patient was admitted and GI was consulted for possible GI bleed. Patients hemoglobin was trended overnight going as low as 7.8 without acute signs of bleeding. As patient has a history of CAD, patient was transfused 2 units of PRBC without complications. Patient then underwent EGD and colonoscopy on . EGD showed a normal esophagus, normal duodenal bulb, with erythematous gastritis of which a biopsy was obtained. Colonoscopy showed moderate diverticulosis without bleeding, large circumferential diffuse abnormal mucosa throughout the colon for which biopsy was obtained, and 2 polyps that were taken for pathology. Patient was recommended continued PPI use, antireflux regimen, avoiding NSAIDs, Benefiber daily, and avoiding seeds/nights/popcorn and diet. He was recommended having a repeat EGD in 1 year as well as a repeat colonoscopy in 1 year. As no source of bleeding was identified, patient will be referred as an outpatient to ENT for further evaluation as his epistaxis is likely source of bleeding. However, as he has discontinued his Eliquis for approximately 4-5 days possible GI source cannot be ruled out. Medical team had thorough discussion with patient including risks, benefits, and side effects of continuing Eliquis medication. Patient educated that stopping Eliquis could lead to a variety of issues including but not limited to possible stroke and . 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 Otherwise patient was discharged home on his home medications with the addition of Benefiber and protonix after tolerating a regular diabetic diet. He was provided prescription for the Benefiber and Protonix at time of discharge. Patient to follow-up with PCP and gastroenterology within 1-2 weeks. - Time Spent with Patient Total time spent providing and/or coordinating discharge services: Less than 30 minutes - Quality: VTE Deep Vein Thrombosis/Pulmonary Embolism Present on Admission: No Exam Vital signs: Vital Signs 06/25/18 16:00 06/25/18 17:42 06/25/18 20:00 Temperature 97.9 F 98.4 F 98.2 F Pulse Rate 60 85 69 Respiratory Rate 16 18 17 Blood Pressure 146/69 H 146/69 H 139/67 Pulse Oximetry 96 96 06/25/18 22:00 06/26/18 00:00 06/26/18 04:00 Temperature 98.2 F 97.7 F Pulse Rate 61 76 60 Respiratory Rate 17 17 Blood Pressure 124/58 L 133/76 Pulse Oximetry 95 97 06/26/18 08:00 06/26/18 10:00 06/26/18 10:10 Temperature 97.8 F 97.9 F 97.9 F Pulse Rate 60 61 64 Respiratory Rate 16 16 16 Blood Pressure 155/69 H 106/46 L 110/48 L Pulse Oximetry 96 94 L 93 L 06/26/18 12:00 Temperature 97.6 F Pulse Rate 65 Respiratory Rate 18 Blood Pressure 137/63 Pulse Oximetry 98 Intake & Output 06/25/18 06/26/18 06/26/18 18:59 06:59 18:59 Intake Total 400 / 400 450 / 450 3000 / 3000 Output Total 1050 / 1050 Balance -650 / -650 450 / 450 3000 / 3000 Weight 71.2 kg Intake: IV 400 / 400 450 / 450 3000 / 3000 D5W/1/2 NS Inj 1,000 ML @ 75 200 / 200 1000 / 1000 mls/hr IV.CONT .[id number] ZACH Rx# :[id number] LR 1000 mL Inj 1,000 ML @ 30 1000 / 1000 mls/hr IV.SIG .Q24H ZACH Rx#: [id number] NS Inj 250 ML @ 15 mls/hr IV. 250 / 250 SIG ONCE ZACH Rx#:[id number] Intake (Blood Product) Amt 0 / 0 Rbc As-3 Leukoreduced Unit 0 / 0 [id number] Rbc As-3 Leukoreduced Unit 0 / 0 [id number] Output: Urine 1050 / 1050 Other: # Voids 3 Date of Last Bowel Movement 06/26/18 # Bowel Movements 4 Narrative: GENERAL: Thin, elderly male lying in bed watching television in no acute distress with his son at bedside. SKIN: Warm and dry. Pale appearing. No rash. Improved capillary refill less than 3 seconds. HEENT: Atraumatic, normocephalic with extraocular motions intact. No rhinorrhea. No visible LAD or JVD appreciated. CARDIOVASCULAR: Regular rate and rhythm without obvious murmurs, gallops, or rubs. 2+ pulses in all four extremities. RESPIRATORY: Clear to auscultation bilaterally with no crackles, wheezes, or rhonchi. No increased work of breathing. GASTROINTESTINAL: Abdomen soft, non-tender, nondistended with positive bowel sounds. No masses appreciated. MUSCULOSKELETAL: No cyanosis or edema. No calf tenderness. Ambulating well without assistance. NEURO/PSYCH: Afocal. Awake, alert, and oriented x3. Oriented PPT 3. Normal speech and judgement. Patient is not able to recall complete medical history and medications likely secondary to dementia. Medical plans discussed with son at bedside. Results Procedures completed during hospitalization: EGD, Colonoscopy Labs on day of discharge: Labs from last 24 hours 06/26/18 06/26/18 06/26/18 11:49 10:04 04:51 WBC RBC Hgb Hct MCV MCH MCHC RDW Plt Count MPV Neut % (Auto) Lymph % (Auto) Forrest % (Auto) Eos % (Auto) Baso % (Auto) Neut # (Auto) Lymph # (Auto) Forrest # (Auto) Eos # (Auto) Baso # (Auto) WBC Differential Differential Comment Sodium 142 Potassium 3.6 Chloride 104 Carbon Dioxide 28.9 Anion Gap 9 BUN 10 Creatinine 0.83 Estimated GFR 89 POC Glucose 130 H 133 H Random Glucose 133 H Hemoglobin A1c Calcium 8.1 L MTS Gel Crossmatch 06/26/18 06/25/18 06/25/18 04:51 22:13 18:00 WBC 4.4 RBC 3.60 L Hgb 10.2 L 10.9 L D Hct 30.7 L 32.2 L MCV 85.3 MCH 28.4 MCHC 33.3 RDW 15.7 Plt Count 144 L MPV 7.7 Neut % (Auto) 60.8 Lymph % (Auto) 17.7 Forrest % (Auto) 18.0 H Eos % (Auto) 2.6 Baso % (Auto) 0.9 Neut # (Auto) 2.7 Lymph # (Auto) 0.8 L Forrest # (Auto) 0.8 Eos # (Auto) 0.1 Baso # (Auto) 0.0 WBC Differential . Differential Comment Auto diff final Sodium Potassium Chloride Carbon Dioxide Anion Gap BUN Creatinine Estimated GFR POC Glucose 119 H Random Glucose Hemoglobin A1c Calcium MTS Gel Crossmatch 06/25/18 06/25/18 06/25/18 16:19 07:47 02:53 WBC RBC Hgb Hct MCV MCH MCHC RDW Plt Count MPV Neut % (Auto) Lymph % (Auto) Forrest % (Auto) Eos % (Auto) Baso % (Auto) Neut # (Auto) Lymph # (Auto) Forrest # (Auto) Eos # (Auto) Baso # (Auto) WBC Differential Differential Comment Sodium Potassium Chloride Carbon Dioxide Anion Gap BUN Creatinine Estimated GFR POC Glucose 132 H Random Glucose Hemoglobin A1c 5.9 Calcium MTS Gel Crossmatch See Detail - Impressions ITS Impressions Chest X-Ray 06/24/18 00:00 CONCLUSION: No acute cardiopulmonary disease. Discharge Plan - Discharge Disposition Patient Disposition: 01 Discharge Home - Discharge Condition Condition: Stable - Discharge Order Discharge Orders: Discharge Order (Routine); Ordered 06/26/18 Ordered By: Donny Mckeon - Discharge Details Anticipated Discharge Date: 06/26/18 Discharge Comment: Patient to be discharged home this afternoon pending tolerating regular diet without complications. - Physicians Team Primary Care Provider: Primary Care Karolina,Mary Attending Provider: Lary Metzger Other Providers: Chino Cool MD
[2018-06-27] MEDS ORDERED: Furosemide 20 MG Tablet PO SCH (09:00)
== END 2018-06-26 14:54 | disposition home or self-care (01) ==
LOC: NEPC 15:27 → NEDA 18:47 → N06 20:57
PROVIDERS: ADMIT Family Medicine; ATTEND Family Medicine